=== PATIENT | female | born 1940 | race Caucasian/White ===

== ENCOUNTER → 2018-02-17 13:30 | Outpatient (CLI) | payer MEDICARE, OTHER, SELFPAY ==
--- NOTE | 2018-02-17 | DI.US.S_ITS ---
PROCEDURE: US ABDOMEN COMPLETE INDICATIONS: ABDOMINAL PAIN TECHNIQUE: Real-time scanning was performed of the abdominal and retroperitoneal organs, with image documentation. COMPARISON: None. FINDINGS: Liver: Liver is normal in size and homogeneous in echotexture. Gallbladder: The gallbladder wall measures 2.2 mm in thickness. No stones, sludge, pericholecystic fluid, or sonographic Domingo sign. Biliary ducts: Intrahepatic bile ducts are non-dilated. Extrahepatic bile duct caliber measures 6.1 mm. Normal is 6-7 mm or less in diameter, or 10 mm or less post-cholecystectomy. Pancreas: Visualized portions of the pancreas are sonographically normal. Spleen: Spleen is normal in size and homogeneous in echotexture. Kidneys: Kidneys are normal in size and echotexture. Right kidney measures 9.2 cm long; left kidney measures 9.7 cm long. No hydronephrosis or nephrolithiasis. No solid masses. There is a simple 1.6 cm right peripelvic cyst. Aorta: Visualized aorta is normal in caliber at less than 3 cm. Iliacs: Proximal common iliac arteries are normal in caliber at less than 2.5 cm. the distal aorta is not visualized. IVC: Iliac visualized. Miscellaneous: No free abdominal fluid. IMPRESSION: No cholelithiasis or findings to suggest choledocholithiasis or acute cholecystitis. Dictated by: Aide Durand M.D. on 02/17/2018 at 21:35 Approved by: Aide Durand M.D. on 02/17/2018 at 21:37
== END ==
PROVIDERS: Family Provider Family Medicine; PCP Family Medicine; Visit Provider Family Medicine
DX: R10.9 Unspecified abdominal pain (principal)
CPT/HCPCS: 76700

== ENCOUNTER → 2018-09-12 13:54 | Outpatient (CLI) | payer MEDICARE, OTHER, SELFPAY ==
--- NOTE | 2018-09-12 | DI.RAD.S_ITS ---
PROCEDURE: XR CHEST 2V INDICATIONS: COUGH TECHNIQUE: 2 views of the chest were acquired. COMPARISON: None. FINDINGS: Surgical changes and devices: None. Lungs and pleura: Lungs are clear. No pleural effusions or pneumothorax. Mediastinum: Mediastinal contours are normal. Heart size is normal. Bones and chest wall: No suspicious bony abnormalities. Soft tissues appear unremarkable. IMPRESSION: Normal for age, source of current cough symptoms is not seen. Dictated by: Ray Vincent M.D. on 09/12/2018 at 15:01 Approved by: Ray Vincent M.D. on 09/12/2018 at 15:01
== END ==
PROVIDERS: Family Provider Family Medicine; PCP Family Medicine; Visit Provider Family Medicine
DX: R05 Cough (principal)
CPT/HCPCS: 71046

== ENCOUNTER 2018-11-01 18:01 | Observation (INO) | payer MEDICARE, OTHER, SELFPAY ==
[2018-11-01] VITALS (9 sets, daily range): BP systolic 127–186; BP diastolic 40–84; PULSE 72–93; RESP 13–22; TEMP 36.3–37.3; O2SAT 96–99; BMI 32.6
--- NOTE | 2018-11-01 | DI.ECHO.S_ITS ---
[facility]---------+ [facility] +---------+ : : [address] : [place] : : : : [id number] : : : : Phone: [phone]+ Echocardiogram Report + + :Name: FREDDIE CALLEJAS Study Date: 11/02/2018 Height: 60 in : :[facility] Exam Location: [place] Weight: 161 lb : : Gender: Female BSA: 1.7 m2 : :: 1940 Age: 78 yrs BP: 164/65 mmHg: :Reason For Study: TIA : : Performed By: Ambrocio Bell : :Referring: DANIEL LAGUNAS : + + Interpretation Summary The ejection fraction is estimated to be 60-65%. There is no significant valvular heart disease. Procedure: A two-dimensional transthoracic echocardiogram with color flow and Doppler was performed. The study quality was technically good. There is no prior echocardiogram noted for this patient. The patient was in normal sinus rhythm during the exam. Left Ventricle: The left ventricle is normal in size. There is normal left ventricular wall thickness. The ejection fraction is estimated to be 60-65%. There are no focal wall motion abnormalities. Right Ventricle: The right ventricle is normal in size and function. Atria: Both atria are normal in size. The interatrial septum is intact with no evidence for an atrial septal defect. Mitral Valve: The mitral valve leaflets are mildly calcified. There is trace mitral regurgitation. Aortic Valve: The aortic valve is normal in structure and function. The aortic valve is trileaflet. The aortic valve opens well. No aortic regurgitation is present. Tricuspid Valve: The tricuspid valve is normal in structure and function. There is trace tricuspid regurgitation. The right ventricular systolic pressure is estimated to be at least 20 mmHg based on an estimated right atrial pressure of 3 mm Hg. Pulmonic Valve: The pulmonic valve is normal in structure and function. There is trace pulmonic regurgitation. Great Vessels: The aortic root is normal size. The dimensions of the ascending aorta are normal. The pulmonary artery is normal size. The IVC is of normal diameter and collapses greater than 50% with a sniff. This suggests a low right atrial pressure of 3 mm Hg. Pericardium/ Pleura There is no pericardial effusion. There is no pleural effusion. MMode/2D Measurements & Calculations LVIDd: 4.2 cm LVOT diam: 2.0 cm LVIDs: 2.2 cm Ao root diam: 2.5 cm FS: 47.5 % Aortic Jxn: 2.3 cm EPSS: 0.67 cm asc Aorta Diam: 2.7 cm IVSd: 0.85 cm Ao Arch Diam (Prox Trans): 2.3 cm LVPWd: 0.92 cm LV hallman. diameter/BSA (cm/m^2): 2.5 LV sys. diameter/BSA (cm/m^2): 1.3 LA dimension: 4.0 cm RA long axis: 3.7 cm LA A2 area: 12.8 cm2 RA area: 9.9 cm2 LA A4 area: 16.7 cm2 RA vol: 22.2 ml LA length (vol): 4.7 cm RA : 13.1 ml/m2 LA vol: 39.1 ml IVC diam: 1.1 cm LA vol index: 22.9 ml/m2 Doppler Measurements & Calculations Ao V2 max: 120.1 cm/sec LVOT Max Myles: 86.3 cm/sec Ao V2 mean: 82.0 cm/sec LV V1 max P.0 mmHg Ao max P.8 mmHg LV V1 VTI: 19.7 cm Ao mean P.0 mmHg RITO(I,D): 2.5 cm2 Ao V2 VTI: 24.6 cm RITO(V,D): 2.3 cm2 sev ratio: 0.80 RITO indexed to BSA (cm^2/m^2): 1.5 MV E max myles: 67.4 cm/sec TR max myles: 204.9 cm/sec MV A max myles: 87.6 cm/sec TR max P.8 mmHg MV E/A: 0.77 PA V2 max: 79.5 cm/sec Med Peak E' Myles: 3.6 cm/sec PA V2 mean: 56.8 cm/sec E/E' med: 18.6 PA mean P.4 mmHg Lat Peak E' Myles: 5.1 cm/sec PA pr(Accel): 26.6 mmHg E/E' lat: 13.3 PA Accel Time: 0.11 sec E/e' average: 16.0 MV dec time: 0.21 sec SV(LVOT): 62.3 ml Reading Physician:03:42 PM
--- NOTE | 2018-11-01 | DI.MRI.S_ITS ---
PROCEDURE: MR STROKE Pre- and post-contrast brain MRI, non-contrast brain MR angiogram, pre- and postcontrast neck MR angiogram INDICATIONS: TIA TECHNIQUE: Brain: Noncontrast axial T1 spin echo, axial T2 fast spin echo, sagittal and axial FLAIR, coronal T2 fast spin echo, axial gradient echo, axial diffusion and ADC through the brain. After the administration of contrast, axial 3D VIBE of the cranial vasculature and brain. Brain MRA: Non-contrast 3-D time of flight MR angiogram, with multiple brekdsq-xbanrekpg-rmezefjacd (MIP) reformats performed. Neck MRA: Axial and sagittal TruFISP through the neck. Coronal dynamic MR angiogram during administration of contrast in the arterial and venous phases, with 3-dimenstional obxabfs-mrgpdgclx-otroiwqkrx (MIP) reformats constructed from subtraction images. COMPARISON: [facility], CT, CT ANGIO HEAD AND NECK, 11/01/2018, 18:59. FINDINGS: Image quality: Excellent. BRAIN: CSF spaces: Ventricles are normal in size and shape. Basal cisterns are patent. No extra-axial fluid collections. Brain: No intracranial bleeds or mass effects. There is moderate diffuse cerebral volume loss. Minimal degree of patchy high FLAIR signal within the periventricular and subcortical white matter, consistent with small vessel ischemic disease. Hudson-white matter interface is normal. Diffusion weighted images show no acute ischemic insults. Brainstem appears normal. Normal intravascular flow voids are present. No abnormal intracranial enhancement. Skull and face: Calvarial marrow signal is normal. Orbits appear normal. Sinuses: Sinuses and mastoids are clear. BRAIN MR ANGIOGRAM: Anterior circulation: Intracranial internal carotid arteries are normal in size and enhancement. The flow within the paired anterior cerebral arteries is normal and symmetric. The flow within the middle cerebral arteries is normal and symmetric. The anterior communicating artery is seen. No stenoses, occlusions, or aneurysms. Posterior circulation: The visualized portions of the vertebral arteries demonstrate normal caliber, and join to form a normal appearing basilar artery. The flow within the posterior cerebral arteries is normal and symmetric. No stenoses, occlusions, or aneurysms. NECK MR ANGIOGRAM: Carotids: Great vessels demonstrate a conventional anatomy as they arise from the aortic arch. 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 Left common carotid artery origin demonstrates a high-grade focal stenosis. The calibers and courses of both common carotid arteries are normal. The bifurcation regions appear normal bilaterally. The internal carotid arteries demonstrate normal course and caliber. Posterior circulation: The origins of the vertebral arteries appear patent. More superior portions of both vertebral arteries demonstrate normal course and caliber, and join to form a normal appearing basilar artery. 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 Pre-contrast images through the neck show no soft tissue abnormalities. IMPRESSION: BRAIN MRI: 1. No acute process. No recent infarct. 2. Mild volume loss. Minimal small vessel ischemic disease. BRAIN MR ANGIOGRAM: 1. Negative cerebral MR angiography. NECK MR ANGIOGRAM: 1. No internal carotid artery stenosis nor vertebral artery stenosis bilaterally, as before. 2. 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 3. 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 Dictated by: Joi Leonardo M.D. on 11/02/2018 at 11:28 Approved by: Joi Leonardo M.D. on 11/02/2018 at 11:38
--- NOTE | 2018-11-01 18:12 | ED_ITS ---
HPI - General Adult General Chief complaint: Neuro Symptoms/Deficit Stated complaint: left hand/leg numbness/severe headache xtoday Time Seen by Provider: 11/01/18 18:07 Source: patient Mode of arrival: ambulatory Limitations: no limitations History of Present Illness HPI narrative: Patient is an 78-year-old female. Arrived by private vehicle with her . She reported that she woke up this morning at approximately 0900 hours with the worst headache of her life. She states that she went back to bed and woke up a couple hours later stating that her headache had much improved however was not completely resolved. From that time until she arrived here in the emergency department she had other symptoms to include tingling in her left hand. She also reported some coordination issues with her left hand. That seems to have resolved by the time she arrived here in the ER. Will brought her into the ER was that she got up to go to the bathroom and she thought that she was dragging her left foot. She asked her if it looked like she was dragging her foot and he thought that she was. Code stroke was called in triage. Related Data Home Medications Medication Instructions Recorded Confirmed ESOMEPRAZOLE SODIUM (NEXIUM) 20 mg PO QDAY@0600 #0 10/15/11 METFORMIN HCL (RIOMET) 1,000 mg PO BID #0 10/15/11 11/01/18 simvastatin 40 mg PO BEDTIME #0 10/15/11 11/01/18 amlodipine 5 mg PO DAILY 11/01/18 11/01/18 Allergies Allergy/AdvReac Type Severity Reaction Status Date / Time Sulfa (Sulfonamide Allergy Mild RASH Verified 11/01/18 18:38 Antibiotics) Review of Systems Constitutional Denies fever(s), Denies frequent falls, Reports headache(s) and Reports weakness (Left hand) Eyes Denies change in vision and Denies diplopia ENT Ears, Nose, Mouth, and Throat: Denies vertigo, Denies dizziness, Reports headache(s), Denies nasal congestion, Denies nasal obstruction, Denies disequilibrium and Denies sore throat Cardiovascular Denies chest pain, Denies palpitations, Denies dyspnea and Denies dyspnea on exertion Respiratory Denies cough, Denies dyspnea and Denies dyspnea on exertion Gastrointestinal Gastrointestinal: Denies abdominal pain, Denies nausea and Denies vomiting Genitourinary Denies dysuria Musculoskeletal Reports abnormal gait (Dragging her left foot) Comments: Tingling to her left hand with coordination issues with her left hand. Sensation and tracking her left foot Integumentary/Breasts Denies rash Neurologic Reports abnormal gait (Dragging her left foot), Reports behavioral changes, Denies confusion, Denies vertigo, Denies dizziness, Denies frequent falls, Reports headache(s), Reports lack of coordination (Left hand), Denies disequilib rium and Reports weakness (Left hand) Psychiatric Denies anxiety, Reports behavioral changes and Denies confusion Endocrine Denies palpitations Hematologic/Lymphatic Denies easy bleeding and Denies easy bruising Allergic/Immunologic Denies urticaria [facility] Medical History Diabetes type 2, controlled (Acute) Gastroesophageal reflux (Acute) History of fracture of left ankle (Acute) History of pelvic fracture (Acute) Hyperlipidemia (Acute) Hypertension (Acute) Irritable bladder (Acute) Surgical History History of D&C (Acute) History of bladder suspension procedure (Acute) History of breast biopsy (Acute) History of hysterectomy (Acute) History of pelvic surgery (Acute) Family History (Updated 11/01/18 @ 23:08 by YG Luciano) Father Hypertension Mother Cancer Brother Stroke Brother Heart attack Brother Heart attack Sister Cancer Social History household members: spouse Smoking Status: Former smoker alcohol intake: never Family History (Updated 11/01/18 @ 23:08 by YG Luciano) Father Hypertension Mother Cancer Brother Stroke Brother Heart attack Brother Heart attack Sister Cancer Social History household members: spouse Smoking Status: Former smoker alcohol intake: never Exam Initial Vital Signs Initial Vital Signs: Vital Signs Pulse Rate 93 H 11/01/18 18:06 Respiratory Rate 22 11/01/18 18:06 Blood Pressure 186/84 H 11/01/18 18:06 Pulse Oximetry 99 11/01/18 18:06 Const General: cooperative, well developed, well groomed and No acute distress Orientation: alert, awake and oriented x3 HENMT Head: normal to inspection and normocephalic Nose: external nose normal Face and sinus: normal facial exam Mouth: oral mucosae normal Eyes Pupils: PERRL EOM: EOM intact bilaterally Resp Effort & Inspection: normal respiratory effort Auscultation: clear to auscultation bilaterally Cardio Rate: regular rate Rhythm: regular rhythm Pulses: radial pulses present GI Inspection: non-distended Palpation: soft, No firm and No tender Skin Lesions: no lesions Rashes: no rashes Neuro General: alert and oriented x3 Cranial Nerves: CN's II-XI intact bilaterally Cognition: normal cognition Speech: speech normal Motor: muscle tone normal throughout Sensory Exam: no sensory deficits noted Coordination: [id number] test normal Extrem General: normal to inspection, capillary refill normal and No edema Psych Appearance: grossly normal and well kempt Scores GCS Jose coma scale eye opening: Spontaneous Jose coma scale verbal response: Orientated [place] coma scale motor response: Obey commands Jose coma scale total score: 15 NIH Stroke Scale Level of Conciousness: Alert, keenly responsive Ask month/age: Answers both questions correctly. Open/close eyes, close hand: Performs both tasks correctly Best gaze horizontal: Normal Visual anderson: No visual loss Facial palsy: Normal symetrical movement Left arm drift: No drift for full 10 sec Right arm drift: No drift for full 10 sec Left leg drift: No drift for full 10 sec Right leg drift: No drift for full 10 sec Limb ataxia: Absent Sensory on face/arms/legs: Normal, no sensory loss Best language: No aphasia, normal Dysarthria: Normal Extinction or inattention: No abnormality Total NIH Stroke scale score: 0 Course Orders Ordered: ED Orders 11/01/18 18:12 CT head/brain wo con Stat EKG-12 Lead Stat 11/01/18 18:18 Complete Blood Count AUTO DIFF Stat Comprehensive Metabolic Panel Stat Ethanol (ETOH) Stat Partial Thromboplastin Time Stat Prothrombin Time INR Stat 11/01/18 18:33 CT angio head and neck Stat 11/01/18 22:13 Consult to Occupational Therapy Evaluate & Treat Consult to Physical Therapy Evaluate & Treat 11/01/18 22:14 Consult to Discharge Planning Routine 11/01/18 22:16 Consult to Speech Therapy Evaluate & Treat 11/02/18 Basic Metabolic Panel Routine Magnesium Routine Acetaminophen (Tylenol) 650 mg PO Q6HR PRN PRN Reason: As Needed for Fever/Mild Pain Amlodipine Besylate (Norvasc) 5 mg PO DAILY [facility] Aspirin (Aspirin Ec) 81 mg PO DAILY [facility] Atorvastatin Calcium (Lipitor) 40 mg PO BEDTIME [facility] Last Admin: 11/01/18 23:44 Dose: 40 mg Dextrose (D50w) 25 gm IV PRN PRN; Protocol PRN Reason: Hypoglycemia Enoxaparin Sodium (Lovenox) 40 mg SUBCUT DAILY [facility] Ibuprofen (Advil) 600 mg PO Q6HR PRN PRN Reason: As Needed for Fever/Mild Pain Insulin Aspart (Novolog Flexpen) 0 unit SUBCUT ACHS [facility]; Protocol Last Admin: 11/01/18 22:41 Dose: Not Given Ondansetron HCl (Zofran) 4 mg IV Q8HR PRN PRN Reason: Nausea And Vomiting Pantoprazole Sodium (Protonix) 20 mg PO 0600 [facility] Sodium Chloride (Normal Saline 0.9% Flush) 10 ml IV BID [facility] Sodium Chloride (Normal Saline 0.9% Flush) 10 ml IV PRN PRN PRN Reason: Flush Discontinued Medications Atorvastatin Calcium (Lipitor) 20 mg PO BEDTIME [facility] Last Admin: 11/01/18 23:37 Dose: Not Given Sodium Chloride (Normal Saline 0.9%) 1,000 mls @ 1,000 mls/hr IV BOLUS ONE Stop: 11/01/18 19:32 Last Infusion: 11/01/18 21:59 Dose: 0 mls/hr Infusion: 11/01/18 19:11 Dose: 0 mls/hr Admin: 11/01/18 18:40 Dose: 1,000 mls/hr Sodium Chloride (Normal Saline 0.9%) 1,000 mls @ 100 mls/hr IV CONT [facility] Last Admin: 11/01/18 23:35 Dose: Not Given Vital Signs - 8 hr 11/01/18 18:06 11/01/18 18:45 11/01/18 19:00 Temperature Pulse Rate 93 H 84 92 H Respiratory Rate 22 15 16 Blood Pressure 186/84 H Blood Pressure [Right Arm] 162/52 H 160/62 H Pulse Oximetry 99 98 99 11/01/18 19:37 11/01/18 20:49 11/01/18 21:30 Temperature Pulse Rate 72 72 73 Respiratory Rate 16 18 13 Blood Pressure Blood Pressure [Right Arm] 130/40 L 127/67 157/58 H Pulse Oximetry 97 97 97 11/01/18 22:00 11/01/18 22:15 11/01/18 23:20 Temperature 97.3 F L 99.2 F Pulse Rate 89 79 79 Respiratory Rate 17 20 18 Blood Pressure 151/53 H 142/58 H Blood Pressure [Right Arm] 181/64 H Pulse Oximetry 96 98 96 Medical Decision Making Lab Data Lab results reviewed: Yes I reviewed the patient's lab results. Result diagrams: 11/01/18 18:18 11/01/18 18:18 Lab Results 11/01/18 11/01/18 11/01/18 Range/Units 18:18 18:18 18:18 WBC 6.4 (4.5-11.0) X10^3/uL RBC 4.45 (4.0-5.2) X10^6/uL Hgb 13.4 (12.0-16.0) g/dL Hct 38.8 (36-46) % MCV 87.1 (80-100) fL MCH 30.2 (26-34) PG MCHC 34.6 (30-36) % RDW 13.4 (11.6-14.8) % Plt Count 299 (150-400) X10^3/uL Neut % (Auto) 41.3 L (50-75) % Lymph % (Auto) 49.5 H (25-40) % [place] % (Auto) 7.0 (3-14) % Eos % (Auto) 1.6 L (2-4) % Baso % (Auto) 0.6 (0-2) % Neut # (Auto) 2600 (2868-2925) /uL Lymph # (Auto) 3200 (2619-0126) /uL [place] # (Auto) 400 (0-900) /uL Eos # (Auto) 100 (0-450) /uL Baso # (Auto) 0 (0-100) /uL PT 10.5 (10.1-12.7) SECONDS INR 0.9 (0.9-1.3) APTT 33 (26.4-36.2) SECONDS Sodium 130 L (137-145) mmol/L Potassium 4.4 (3.4-5.1) mmol/L Chloride 93 L (98-107) mmol/L Carbon Dioxide 27 (22-32) mmol/L BUN 16 (7-17) mg/dL Creatinine 0.90 (0.52-1.04) mg/dL Estimated GFR > 60.0 (>60) mL/min BUN/Creatinine Ratio 17.8 (6-22) Glucose 92 (80-110) mg/dL Calcium 10.1 (8.4-10.2) mg/dL Total Bilirubin 0.7 (0.2-1.3) mg/dL AST 24 (14-36) IU/L ALT 26 (9-52) IU/L Alkaline Phosphatase 71 (38-126) U/L Total Protein 7.3 (6.3-8.2) g/dL Albumin 4.6 (3.5-5.0) g/dL Globulin 2.7 (1.7-4.1) g/dL Albumin/Globulin Ratio 1.7 (1.0-2.8) Ethyl Alcohol < 10 mg/dL Point of Care Testing Glucose POC 104 Point of care testing: Point of Care Testing Glucose POC [address] scan - head: Radiologist's impression: [address] [address] [address] Scan Report Signed Patient: Gerda Pak LMR#: [id number] : 8Acct:[id number] Age/Sex: 78 / FDate of Service: 11/01/18 Loc: ED Accession Number: [id number] Procedure: CT head/brain wo con Ordering Provider: Torin Patel D.O. PROCEDURE: CT HEAD/BRAIN WO CON INDICATIONS: possible stroke TECHNIQUE: Noncontrast 4.5 mm thick angled axial sections acquired from the foramen magnum to the vertex, with coronal and sagittal reformats. For radiation dose reduction, the following was used: automated exposure control, adjustment of mA and/or kV according to patient size. COMPARISON: [facility], CT, HEAD WITHOUT CONTRAST, 02/26/2014, 12:34. FINDINGS: Image quality: Excellent. CSF spaces: Basal cisterns are patent. No extra-axial fluid collections. The ventricles are symmetric in size and shape. Brain: No intracranial bleeds or masses. There is cerebral volume loss for age, with resultant ventricular and sulcal prominence. There are periventricular and deep white matter chronic small vessel ischemic changes. There is intracranial internal carotid artery atherosclerosis. Skull and face: Calvarium and visualized facial bones appear intact, without suspicious lesions. Sinuses: Visualized sinuses and mastoids are clear. IMPRESSION: No acute intracranial hemorrhage can be seen. No CT findings of early infarction are seen. If there is strong clinical suspicion for an acute stroke, please consider an MRI for further evaluation, as it is more sensitive (assuming that there is no contraindication to MRI). Dictated by: Placido Oliver M.D. on 11/01/2018 at 17:21 Approved by: Placido Oliver M.D. on 11/01/2018 at 17:21 CTA head and neck: Radiologist's impression: [address] [address] [address] Scan Report Signed Patient: Gerda Pak LMR#: [id number] : 8Acct:[id number] Age/Sex: 78 / FDate of Service: 11/01/18 Loc: ED Accession Number: [id number] Procedure: CT angio head and neck Ordering Provider: Torin Patel D.O. PROCEDURE: CT ANGIO HEAD AND NECK INDICATIONS: headache possible stroke TECHNIQUE: Pre-contrast 4.5 mm thick sections acquired from the foramen magnum to the vertex. After the administration of intravenous contrast, 1 mm thick sections acquired from the aortic arch through the [place] of [place]. Post-contrast 4.5 mm thick sections then re- acquired from the foramen magnum to the vertex. 3-dimensional maximum-intensity- projection (MIP) and/or volume rendering reformats were acquired of the central intracranial vasculature and neck separately. COMPARISON: [facility], CT, CT HEAD/BRAIN WO CON, 11/01/2018, 18:09. [facility], CT, HEAD WITHOUT CONTRAST, 02/26/2014, 12:34. FINDINGS: Image quality: Excellent. BRAIN: CSF spaces: Ventricles are normal in size and shape. Basal cisterns are patent. No extra-axial fluid collections. Brain: No midline shift. No intracranial bleeds or masses. [place]-white matter interface appears intact. There are moderate periventricular and subcortical white matter hypoattenuation suggestive of chronic intravascular ischemic changes. There is calcified plaque of the intracranial vasculature. Skull and face: Calvarium and facial bones appear intact, without suspicious lesions. Orbits appear normal. Sinuses: Sinuses and mastoids are clear. HEAD CT ANGIOGRAPHY: Anterior circulation: Intracranial internal carotid arteries are normal in size and flow. The flow within the paired anterior cerebral arteries is normal and symmetric. The flow within the middle cerebral arteries is normal and symmetric. The anterior communicating artery is not well seen. No aneurysms are seen. Posterior circulation: Visualized portions of the vertebral arteries demonstrate normal caliber, and join to form a normal appearing basilar artery. Flow within the posterior cerebral arteries is normal and symmetric. No aneurysms are seen. NECK CT ANGIOGRAPHY: Carotid system: The great vessels demonstrate a conventional anatomy as they arise from the aortic arch. The origins of the common carotid arteries appear patent. There is calcified and noncalcified plaque of the origins of the common carotid arteries. The common carotid arteries demonstrate normal caliber and courses. There is moderate calcified and noncalcified plaque of the carotid bifurcations bilaterally. The internal carotid arteries demonstrate normal calibers and courses. Posterior circulation: The origins of the vertebral arteries both appear widely patent. The more superior extracranial portions of both vertebral arteries also d emonstrate normal courses and calibers. The basilar artery appears patent. Soft tissues: Visualized neck soft tissues demonstrate no suspicious abnormalities. Bones: Moderate multilevel degenerative changes of the cervical spine noted. There is straightening of the normal cervical lordosis. IMPRESSION: 1. No acute intracranial abnormality. 2. No significant occlusion, stenosis, dissection, or aneurysm of the cervical courses of the internal carotid arteries and vertebral arteries bilaterally. 3. No significant occlusion, stenosis, dissection, or aneurysm of the intracranial vasculature identified. Any quantitative measurements of stenosis were performed using NASCET criteria. Dictated by: John Montanez M.D. on 11/01/2018 at 20:46 Approved by: John Montanez M.D. on 11/01/2018 at 20:58 ECG Data Attestation: I personally reviewed and interpreted this ECG as follows: Prior ECG tracings: not available for review Interpretation: Sinus rhythm Ventricular rate 82 Left axis deviation LVH Normal QRS Normal QTC Nonspecific ST T wave changes MDM Narrative Medical decision making narrative: Patient had no objective findings on her exam here in the ER. It does appear that most of her symptoms have either greatly improved or resolved. She is not a candidate for tPA. CTA shows no large vessel occlusions. Discussed the case with Neurology at [facility] who agreed that patient is not a candidate for any retrieval procedures. Patient was not hypertensive. Considered subarachnoid hemorrhage given her headache earlier today however this CTA of the head and neck was unremarkable. Patient still needs MRI. Discussed the case with BERNADETTE Bell the night hospitalist who will admit for further evaluation and treatment. Discussed the admission with the patient her is at bedside. They expressed understanding and agreement. Critical Care Time Critical Care Time: Yes Total Critical Care Time: 35 Attestation: The high probability of a clinically significant, sudden or life threatening deterioration of the neurologic system(s) required my full and direct attention, intervention and personal management. The aggregate critical care time was 35 minutes. This time is in addition to time spent performing reported procedures but includes the following: [] Data Review and interpretation [] Patient assessment and monitoring of vital signs [] Documentation [] Medication orders and management Discharge Plan Departure Patient Disposition: Admitted as Observation Clinical Impression: Transient cerebral ischemia Qualifiers: Transient cerebral ischemia type: unspecified Qualified Code(s): G45.9 - Transient cerebral ischemic attack, unspecified Headache Qualifiers: Headache type: unspecified Headache chronicity pattern: acute headache Intractability: not intractable Qualified Code(s): R51 - Headache Discharge Date/Time: 11/01/18 22:10 Interventions: ED Discharge Assessment Last Done: 11/01/18 22:10 Admit Date/Time: 11/01/18 21:36 Admit Provider: Carlos Enrique Bell
[2018-11-01 18:28] LABS: Add Manual Diff / Slide Review NO; Basophils Absolute Auto 0 /uL (0-100); Basophils Percent Auto 0.6 % (0-2); Eosinophils Absolute Auto 100 /uL (0-450); Eosinophils Percent Auto 1.6 % (2-4); Hematocrit 38.8 % (36-46); Hemoglobin 13.4 g/dL (12.0-16.0); Lymphocytes Absolute Auto 3200 /uL (1100-4500); Lymphocytes Percent Auto 49.5 % (25-40); Mean Corpuscular HGB Conc 34.6 % (30-36); Mean Corpuscular Hemoglobin 30.2 PG (26-34); Mean Corpuscular Volume 87.1 fL (80-100); Monocytes Absolute Auto 400 /uL (0-900); Neutrophils Absolute Auto 2600 /uL (1500-7000); Neutrophils Percent Auto 41.3 % (50-75); Platelet Count 299 X10^3/uL (150-400); Red Blood Cell Count 4.45 X10^6/uL (4.0-5.2); Red Cell Distribution Width 13.4 % (11.6-14.8); White Blood Cell Count 6.4 X10^3/uL (4.5-11.0)
--- NOTE | 2018-11-01 18:33 | DI.CT.S_ITS ---
PROCEDURE: CT ANGIO HEAD AND NECK INDICATIONS: headache possible stroke TECHNIQUE: Pre-contrast 4.5 mm thick sections acquired from the foramen magnum to the vertex. After the administration of intravenous contrast, 1 mm thick sections acquired from the aortic arch through the [place] of [place]. Post-contrast 4.5 mm thick sections then re-acquired from the foramen magnum to the vertex. 3-dimensional qiuqfek-etsdoawda-rybnxtxqwo (MIP) and/or volume rendering reformats were acquired of the central intracranial vasculature and neck separately. COMPARISON: [facility], CT, CT HEAD/BRAIN WO CON, 11/01/2018, 18:09. [facility], CT, HEAD WITHOUT CONTRAST, 02/26/2014, 12:34. FINDINGS: Image quality: Excellent. BRAIN: CSF spaces: Ventricles are normal in size and shape. Basal cisterns are patent. No extra-axial fluid collections. Brain: No midline shift. No intracranial bleeds or masses. [place]-white matter interface appears intact. There are moderate periventricular and subcortical white matter hypoattenuation suggestive of chronic intravascular ischemic changes. There is calcified plaque of the intracranial vasculature. Skull and face: Calvarium and facial bones appear intact, without suspicious lesions. Orbits appear normal. Sinuses: Sinuses and mastoids are clear. HEAD CT ANGIOGRAPHY: Anterior circulation: Intracranial internal carotid arteries are normal in size and flow. The flow within the paired anterior cerebral arteries is normal and symmetric. The flow within the middle cerebral arteries is normal and symmetric. The anterior communicating artery is not well seen. No aneurysms are seen. Posterior circulation: Visualized portions of the vertebral arteries demonstrate normal caliber, and join to form a normal appearing basilar artery. Flow within the posterior cerebral arteries is normal and symmetric. No aneurysms are seen. NECK CT ANGIOGRAPHY: Carotid system: The great vessels demonstrate a conventional anatomy as they arise from the aortic arch. The origins of the common carotid arteries appear patent. There is calcified and noncalcified plaque of the origins of the common carotid arteries. The common carotid arteries demonstrate normal caliber and courses. There is moderate calcified and noncalcified plaque of the carotid bifurcations bilaterally. The internal carotid arteries demonstrate normal calibers and courses. Posterior circulation: The origins of the vertebral arteries both appear widely patent. The more superior extracranial portions of both vertebral arteries also demonstrate normal courses and calibers. The basilar artery appears patent. Soft tissues: Visualized neck soft tissues demonstrate no suspicious abnormalities. Bones: Moderate multilevel degenerative changes of the cervical spine noted. There is straightening of the normal cervical lordosis. IMPRESSION: 1. No acute intracranial abnormality. 2. No significant occlusion, stenosis, dissection, or aneurysm of the cervical courses of the internal carotid arteries and vertebral arteries bilaterally. 3. No significant occlusion, stenosis, dissection, or aneurysm of the intracranial vasculature identified. Any quantitative measurements of stenosis were performed using NASCET criteria. Dictated by: John Montanez M.D. on 11/01/2018 at 20:46 Approved by: John Montanez M.D. on 11/01/2018 at 20:58
[2018-11-01 18:35] LABS: INR 0.9 (0.9-1.3); Prothrombin Time 10.5 SECONDS (10.1-12.7)
[2018-11-01 18:37] LABS: PTT Partial Thromboplastin Tim 33 SECONDS (26.4-36.2)
[2018-11-01] MEDS: SODIUM CHLORIDE 0.9% 1,000 ML 1000 ML IV (18:40)
[2018-11-01 18:45] LABS: Alanine Aminotransferase 26 IU/L (9-52); Albumin 4.6 g/dL (3.5-5.0); Albumin Globulin Ratio 1.7 (1.0-2.8); Alkaline Phosphatase 71 U/L (38-126); Aspartate Aminotransferase 24 IU/L (14-36); BUN Creatinine Ratio 17.8 (6-22); Bilirubin Total 0.7 mg/dL (0.2-1.3); Blood Urea Nitrogen 16 mg/dL (7-17); Calcium 10.1 mg/dL (8.4-10.2); Carbon Dioxide 27 mmol/L (22-32); Chloride 93 mmol/L (98-107); Estimated Glomerular Filt Rate > 60.0 mL/min (>60); Ethanol (ETOH) < 10 mg/dL; Globulin 2.7 g/dL (1.7-4.1); Glucose 92 mg/dL (80-110); HEMOLYSIS < 15 (0-50); Potassium 4.4 mmol/L (3.4-5.1); Sodium 130 mmol/L (137-145); Total Protein 7.3 g/dL (6.3-8.2)
--- NOTE | 2018-11-01 22:34 | PM.HP.1 ---
History of Present Illness Chief complaint: left hand/leg numbness/severe headache xtoday Narrative: Gerda Pak is an 78-year-old female patient with history significant for non insulin-dependent type 2 diabetes, hypertension and hyperlipidemia who presents to the ER with complaints of left-sided weakness. The patient provides a history that he had wok at 4 a.m. with the worst headache ever. She described the headache as at the crown of her head without radiation, visual changes, neck pain or nausea. She states at that time she took Advil and returned to bed waking in the morning feeling her headache was better but not resolved and feeling ?like my head is filled with cotton wool. She further describes an episode of left hand ?locking up? that after several minutes she is able to relax her fingers regaining baseline dexterity. She reports left leg weakness stating she feels like she is dragging her left leg. The patient reports no antecedent complaints of recent illness fever or chills, nasal congestion or sore throat. She reports experiencing no visual changes or difficulty swallowing. Denies neck pain or back pain and has no chest pain or palpitations, shortness of breath, cough or wheezing. She denies complaints of abdominal pain and has had no nausea or vomiting and denies complaints of constipation or diarrhea. She does have a history of GERD and has been taking esomeprazole chronically with no symptoms. She does endorse a history of frequent urination and a ?weak bladder?. She has no prior history of ataxia or falls. In the ER the patient presented with an elevated blood pressure of 186/64. Heart rate 93, respirations of 22 saturating 99% on room air upon arrival to the floor a temperature was taken and and the patient found to be afebrile at 97.3 with blood pressure of 151/53. The patient is evaluated as a code stroke in the ER with a CT obtained finding no acute intracranial process. CTA found no significant vascular lesions or occlusion, stenosis, and vertebral or intracranial vasculature. Laboratory studies completed in the ER found CBC within normal range as well as coagulation studies. On chemistry sodium is noted to be low at 130 with normal potassium of 4.4 and preserve renal function with a BUN of 16 and creatinine 0.9 and blood sugar of 92. Patient is admitted to the hospital for TIA necessitating ongoing evaluation and monitoring. Patient History Medical History (Updated 11/01/18 @ 22:47 by YG Luciano) Diabetes type 2, controlled (Acute) Gastroesophageal reflux (Acute) History of fracture of left ankle (Acute) History of pelvic fracture (Acute) Hyperlipidemia (Acute) Hypertension (Acute) Irritable bladder (Acute) Surgical History (Updated 11/01/18 @ 22:47 by YG Luciano) History of D&C (Acute) History of bladder suspension procedure (Acute) History of breast biopsy (Acute) History of hysterectomy (Acute) History of pelvic surgery (Acute) Family History (Updated 11/01/18 @ 23:08 by YG Luciano) Father Hypertension Mother Cancer Brother Stroke Brother Heart attack Brother Heart attack Sister Cancer Social History household members: spouse Smoking Status: Former smoker alcohol intake: never Family & Social History Family History (Updated 11/01/18 @ 23:08 by YG Luciano) Father Hypertension Mother Cancer Brother Stroke Brother Heart attack Brother Heart attack Sister Cancer Social History: household members spouse Prior Living Arrangements House Safety & Behavioral: Feels Safe in Current Yes Environment Been Physically Hurt or No Threatened By a Person Suicidal Ideation Description None Suicide Plan Description No Plan Tobacco & Substance use: Smoking Status Former smoker alcohol intake never Substance Use Type does not use Comment: Patient presently is residing in a single family home that is a trilevel with her to whom she has been for 49 years. Her father and mother have her father had hypertension and mother lung cancer. She has 3 brothers 1 of whom had a severe stroke another with an PA and the other with cardiovascular disease receiving stents. She has 1 sister who had breast cancer. Smoking: Past smoker, started age 14 smoking 2 packs per day until age 40. The patient quit smoking in 1978. Alcohol: Patient denies alcohol use. Substance use: The patient denies recreation pharmaceuticals herbal or cannabis products. Advanced directive: The patient is to be a FULL CODE. She designates her to be surrogate decision maker. Meds Home Medications Medication Instructions Recorded Confirmed Type ESOMEPRAZOLE SODIUM (NEXIUM) 20 mg PO QDAY@0600 #0 10/15/11 History METFORMIN HCL (RIOMET) 1,000 mg PO BID #0 10/15/11 11/01/18 History simvastatin 40 mg PO BEDTIME #0 10/15/11 11/01/18 History amlodipine 5 mg PO DAILY 11/01/18 11/01/18 History Allergies Allergy/AdvReac Type Severity Reaction Status Date / Time Sulfa (Sulfonamide Allergy Mild RASH Verified 11/01/18 18:38 Antibiotics) Review of Systems Review of Systems All systems reviewed & are unremarkable except as noted in HPI and below Exam Vital Signs (past 8 hours): - 11/01/18 18:06 11/01/18 18:45 11/01/18 19:00 Pulse Rate 93 H 84 92 H Respiratory Rate 22 15 16 Blood Pressure 186/84 H Blood Pressure [Right Arm] 162/52 H 160/62 H Pulse Oximetry 99 98 99 11/01/18 19:37 11/01/18 20:49 11/01/18 21:30 Pulse Rate 72 72 73 Respiratory Rate 16 18 13 Blood Pressure Blood Pressure [Right Arm] 130/40 L 127/67 157/58 H Pulse Oximetry 97 97 97 11/01/18 22:00 Pulse Rate 89 Respiratory Rate 17 Blood Pressure Blood Pressure [Right Arm] 181/64 H Pulse Oximetry 96 Oxygen Delivery Method Room Air Narrative Exam Narrative: GENERAL APPEARANCE: well developed, OPC male with a BMI of 31.6, in no acute distress. HEAD: Symmetrical facies, no scalp lesions. EYES: pupils equal, round, reactive to light and accommodation, sclera non-icteric, extraocular movement intact without nystagmus. EARS: normal external structures, no ear pain NOSE: sinuses non tender to percussion, no rhinorrhea ORAL CAVITY: mucosa moist without lesions or exudate, palate normal, tongue in midline. THROAT: normal, no erythema, no exudate, pharynx normal, uvula midline. NECK/THYROID: neck supple, no jugular venous distention, no carotid bruit, no thyromegaly, trachea midline. LYMPH NODES: no cervical or supraclavicular lymphadenopathy. SKIN: warm and dry, no suspicious lesions, no rashes, good turgor. HEART: regular rate and rhythm, S1-S2 without murmur, no rubs or gallops, brisk capillary refill, no edema LUNGS: clear to auscultation bilaterally, no coarseness crackles or wheezing, no cough present CHEST: Symmetrical movement, no accessory muscle use. ABDOMEN: Soft, no distention, no epigastric or abdominal tenderness on palpation, no guarding or peritoneal signs, no organomegaly, active bowel tones. BACK: Normal curvature, nontender to palpation EXTREMITIES: moves all extremities, strength is 5/5 bilaterally and symmetrical, well perfused. 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 PSYCH: alert, cognitive function intact, good eye contact, stable mood with congruent affect Objective Labs Result Diagrams: 11/01/18 18:18 11/01/18 18:18 Labs: Laboratory Results - last 24 hr 11/01/18 11/01/18 11/01/18 18:18 18:18 18:18 WBC 6.4 RBC 4.45 Hgb 13.4 Hct 38.8 MCV 87.1 MCH 30.2 MCHC 34.6 RDW 13.4 Plt Count 299 Neut % (Auto) 41.3 L Lymph % (Auto) 49.5 H Callaway % (Auto) 7.0 Eos % (Auto) 1.6 L Baso % (Auto) 0.6 Neut # (Auto) 2600 Lymph # (Auto) 3200 [place] # (Auto) 400 Eos # (Auto) 100 Baso # (Auto) 0 PT 10.5 INR 0.9 APTT 33 Sodium 130 L Potassium 4.4 Chloride 93 L Carbon Dioxide 27 BUN 16 Creatinine 0.90 Estimated GFR > 60.0 BUN/Creatinine Ratio 17.8 Glucose 92 Calcium 10.1 Total Bilirubin 0.7 AST 24 ALT 26 Alkaline Phosphatase 71 Total Protein 7.3 Albumin 4.6 Globulin 2.7 Albumin/Globulin Ratio 1.7 Ethyl Alcohol < 10 Assessment & Plan Assessment & Plan narrative: The patient is admitted to the hospital related to transient left hand cramping and left leg weakness. 1. Transitory ischemic attack, symptoms resolved upon arrival. -patient with reported left hand cramping and spasms that resolved as well as left leg weaknes, both symptoms had resolved prior to arrival in the ER. -patient continues to complain of persistent headache at the top for head without associated symptoms of nausea visual changes fevers or chills. -patient does present with unequal strength in the lower extremities with the right greater than left. Patient has a history of pelvic fracture and ankle fracture that she believes affects her strength. -neuro exam is intact with an NIH score of 0, ABCD2 score of 6. -CT and CTA find no significant lesions, will obtain MR stroke. -patient without complaints of chest pain or palpitations, will obtain echocardiogram. -simvastatin will be changed to atorvastatin 40 mg daily. -add aspirin 81 mg daily. -PT and OT to consult, evaluate and treat, speech therapy to evaluate and treat. 2. Chronic Hypertension, present on admission. -the patient presents with a blood pressure of 186/64 improving to 127/67 in the ER. -will continue patient's home medication amlodipine 5 mg daily. 3. Chronic Diabetes type 2, non insulin dependent, controlled. -patient takes metformin 1000 mg twice daily, she reports hemoglobin A1c last week of 5.9. -no complaints of retinopathy, no nephropathy with BUN of 16 and creatinine is 0.9, occasional episodes of numbness and tingling bilateral feet not present on exam. -fingerstick blood sugars AC and HS -correctional insulin low range. 4. Chronic Hyperlipidemia, active -patient takes simvastatin 40 mg daily will be transition to atorvastatin 40 mg daily. -will obtain lipid panel 5. Chronic GERD, stable -patient is taking as esomeprazole daily with no symptoms. -will order Protonix 20 mg daily. The patient is admitted to the hospital due to his severity of symptoms and risk for potential complications or adverse events. The patient is admitted as an observation patient with expected length of stay to be less than 2 midnights. Time Spent With Patient Time with patient: 25 - 35 minutes Scores ABCD2 Age >= 60 years: yes Initial BP. Either SBP >= 140 or DBP >= 90.: yes Clinical features of the TIA: unilateral weakness Duration of symptoms: 10-59 minutes History of diabetes: yes ABCD2 Score: 6 NIHSS Level of Conciousness: Alert, keenly responsive Ask month/age: Answers both questions correctly. Open/close eyes, close hand: Performs both tasks correctly Best gaze horizontal: Normal Visual anderson: No visual loss Facial palsy: Normal symetrical movement Left arm drift: No drift for full 10 sec Right arm drift: No drift for full 10 sec Left leg drift: No drift for full 10 sec Right leg drift: No drift for full 10 sec Limb ataxia: Absent Sensory on face/arms/legs: Normal, no sensory loss Best language: No aphasia, normal Dysarthria: Normal Extinction or inattention: No abnormality Total NIH Stroke scale score: 0
--- NOTE | 2018-11-01 22:41 | PC.ADMIT ---
[email or web address] [facility] Admission Note: The patient,Gerda Pak,78 y/o, was given written information regarding hospital policies, unit procedures and contact persons. Patient's smoking status: Former smoker. Vital Signs - 8 hr 11/01/18 18:06 11/01/18 18:45 11/01/18 19:00 Pulse Rate 93 H 84 92 H Respiratory Rate 22 15 16 Blood Pressure 186/84 H Blood Pressure [Right Arm] 162/52 H 160/62 H Pulse Oximetry 99 98 99 11/01/18 19:37 11/01/18 20:49 11/01/18 21:30 Pulse Rate 72 72 73 Respiratory Rate 16 18 13 Blood Pressure Blood Pressure [Right Arm] 130/40 L 127/67 157/58 H Pulse Oximetry 97 97 97 11/01/18 22:00 Pulse Rate 89 Respiratory Rate 17 Blood Pressure Blood Pressure [Right Arm] 181/64 H Pulse Oximetry 96 Patient up from ED via stretcher. Pt was able to get off of the stretcher and ambulate to the bathroom. Gait was steady. Pt A&O, calm and cooperative. Denies sx that she arrived to the ED with.
[2018-11-01] MEDS: ATORVASTATIN 20 MG TABLET 40 MG PO (23:44)
[2018-11-02 04:10] VITALS: BP 148/71; PULSE 71; RESP 18; TEMP 36.2; O2SAT 98
[2018-11-02 05:37] LABS: Cholesterol 186 mg/dL (140-199); HDL Cholesterol 70 mg/dL (40-60); LDL Cholesterol Calculated 84 mg/dL (<100); Triglycerides 160 mg/dL (35-150)
[2018-11-02 05:45] LABS: Magnesium 1.9 mg/dL (1.6-2.3)
[2018-11-02 05:54] LABS: BUN Creatinine Ratio 13.8 (6-22); Blood Urea Nitrogen 11 mg/dL (7-17); Carbon Dioxide 28 mmol/L (22-32); Chloride 101 mmol/L (98-107); Estimated Glomerular Filt Rate > 60.0 mL/min (>60); Glucose 107 mg/dL (80-110); HEMOLYSIS < 15 (0-50); Potassium 4.1 mmol/L (3.4-5.1); Sodium 138 mmol/L (137-145)
[2018-11-02] MEDS: PANTOPRAZOLE 20 MG TABLET PO (05:54)
[2018-11-02 07:22] VITALS: BP 140/65; PULSE 68; RESP 16; TEMP 36.8; O2SAT 98
[2018-11-02] MEDS: ENOXAPARIN 40 MG/0.4 ML SYRINGE SUBCUT (08:39)
[2018-11-02] MEDS: AMLODIPINE 5 MG TABLET PO (08:39)
[2018-11-02] MEDS: ASPIRIN EC 81 MG TABLET PO (08:39)
--- NOTE | 2018-11-02 09:10 | CM.DANOTE ---
DCP: Case received, EMR reviewed and met with patient. Introduced self and role. Baseline history and health information obtained from patient. DCP assessment completed with information currently available. Patient is an 78 year old female who admitted yesterday evening to the care of the hospitalist team. PCP: Dr. Horowitz. Payer: confirmed: Medicare/[employer]. Patient came to hospital via family vehicle due to symptoms of severe headache, and numbness to her left hand and lower extremity. Patient has history of non-insulin diabetes, and was noted to have an increased blood pressure upon admit. At this time, patient holds diagnosis of TIA, but is expected to have MRI today. Met with patient in her room. Pleasant demeanor. Alert and oriented. Lives in [place] with her spouse, Jossue. She stated that they had just celebrated their 49 anniversary at [place]. Patient is independent. She stated, she likes to stay active and busy. She mentioned, she has never had a headache like this before, as well as the numbness, which is why she came here. She stated, she is now feeling better, and is hoping to go home after the MRI. P: DCP to continue to follow. Will see how MRI is today, and may be able to go home. Natalie Zuniga RN/[employer]
[2018-11-02 11:23] VITALS: BP 151/73; PULSE 77; RESP 16; TEMP 36.4; O2SAT 97
--- NOTE | 2018-11-02 11:45 | ST.IPCSEOM ---
Care Team Visit Care Team Role Provider Type Timbo Horowitz MD Family Provider Physician Primary Care Provider Specialty: Family Practice Address: [address], [place], [address] Email: Torin Patel DO Emergency Provider Physician Specialty: Emergency Medicine Address: [address] [place] [address], [id number] Email: YG Luciano Admit Provider Physician Attending Provider Specialty: Internal Medicine Address: [address] [place] [address], [id number] Email: Past Medical History (Last Reviewed 11/02/18 @ 01:55 by Torin Patel DO) Diabetes type 2, controlled (Acute Medical) Gastroesophageal reflux (Acute Medical) History of fracture of left ankle (Acute Medical) History of pelvic fracture (Acute Medical) Hyperlipidemia (Acute Medical) Hypertension (Acute Medical) Irritable bladder (Acute Medical) Speech-Language Pathology 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 Clinical Swallow Evaluation Start: 11/02/18 11:28 Freq: Status: Active Protocol: Document 11/02/18 11:29 LNK (Rec: 11/02/18 11:44 [email or web address]) Clinical Swallow Evaluation Session Time Visit Start Time 11:10 Visit Stop Time 11:30 Total Visit Minutes 20 Setting Assessment Location Acute Care Visit Type Note Type Initial Evaluation Patient Information Identification Type Name ID Wristband History Gerda Pak is an 78-year -old female patient with history significant for non insulin-dependent type 2 diabetes, hypertension and hyperlipidemia who presents to the ER with complaints of left-sided weakness. The patient provides a history that he had wok at 4 a.m. with the worst headache ever. She described the headache as at the crown of her head without radiation, visual changes, neck pain or nausea. She states waking in the morning feeling her headache was better but not resolved and feeling ?like my head is filled with cotton wool. She further describes an episode of left hand ?locking up? that after several minutes she is able to relax her fingers regaining baseline dexterity. She reports left leg weakness stating she feels like she is dragging her left leg. Pt's symptoms were reported to have resolve before admission to the ER. Subjective Observations Pt just returned from MRI. She was sitting upright in bedside chair with family present. Evaluation Liquids Trialed Thin Solids Trialed Regular Administration Type Self-Feeding Oral Impairment WFL Oral Phase Comments OM examination indicated structures and function WFL. Adequate dentition for mastication bolus formation and transit A-P. No oral residue observed. Pharyngeal Impairment WFL Pharyngeal Phase Comments Adequate hyolaryngeal elevation and forward excursion, prompt swallow response, no cough/choke, no wet voicing observed. Findings Impressions Pt presented with oral/ pharyngeal phases of swallowing WFL. Diet Recommendations Liquids Order Thin Diet Order Regular Medication Recommendations As Tolerated Aspiration Precautions Recommended Precautions Upright at 90 Degrees Treatment Plan Placement Recommendations after Home Discharge Appropriate for Therapy No
--- NOTE | 2018-11-02 13:12 | P.DS_ITS ---
History of Present Illness Chief complaint: left hand/leg numbness/severe headache xtoday Narrative: Gerda Pak is an 78-year-old female patient with history significant for non insulin-dependent type 2 diabetes, hypertension and hyp erlipidemia who presents to the ER with complaints of left-sided weakness. The patient provides a history that he had wok at 4 a.m. with the worst headache ever. She described the headache as at the crown of her head without radiation, visual changes, neck pain or nausea. She states at that time she took Advil and returned to bed waking in the morning feeling her headache was better but not resolved and feeling ?like my head is filled with cotton wool. She further describes an episode of left hand ?locking up? that after several minutes she is able to relax her fingers regaining baseline dexterity. She reports left leg weakness stating she feels like she is dragging her left leg. The patient reports no antecedent complaints of recent illness fever or chills, nasal congestion or sore throat. She reports experiencing no visual changes or difficulty swallowing. Denies neck pain or back pain and has no chest pain or palpitations, shortness of breath, cough or wheezing. She denies complaints of abdominal pain and has had no nausea or vomiting and denies complaints of constipation or diarrhea. She does have a history of GERD and has been taking esomeprazole chronically with no symptoms. She does endorse a history of frequent urination and a ?weak bladder?. She has no prior history of ataxia or falls. In the ER the patient presented with an elevated blood pressure of 186/64. Heart rate 93, respirations of 22 saturating 99% on room air upon arrival to the floor a temperature was taken and and the patient found to be afebrile at 97.3 with blood pressure of 151/53. The patient is evaluated as a code stroke in the ER with a CT obtained finding no acute intracranial process. CTA found no significant vascular lesions or occlusion, stenosis, and vertebral or intracra nial vasculature. Laboratory studies completed in the ER found CBC within normal range as well as coagulation studies. On chemistry sodium is noted to be low at 130 with normal potassium of 4.4 and preserve renal function with a BUN of 16 and creatinine 0.9 and blood sugar of 92. Patient is admitted to the hospital for TIA necessitating ongoing evaluation and monitoring. Discharge Providers Date of admission: 11/01/18 21:36 Discharge Date: 11/02/18 Primary care physician: Timbo Horowitz MD Consults: 11/01/18 22:13 Consult to Occupational Therapy Evaluate & Treat Comment: Physician Instructions: Evaluate and treat Consult to Physical Therapy Evaluate & Treat Comment: TIA, left leg weakness Physician Instructions: Evaluate and Treat 11/01/18 22:14 Consult to Discharge Planning Routine Comment: 11/01/18 22:16 Consult to Speech Therapy Evaluate & Treat Comment: TIA Physician Instructions: Evaluate and treat Discharge provider: Rosemary Leonard MD Summary Discharge Diagnosis: 1. Transient ischemic attack 2. Hypertension 3. Type 2 diabetes 4. Hyperlipidemia 5. Subclavian artery stenosis 6. Common carotid artery stenosis Hospital Course: Patient was admitted to the hospital for evaluation of a possible TIA. Her presenting symptoms was left leg weakness left hand splint and headache. Her symptoms completely resolved. She was seen by speech therapy and deemed not to have need for speech pathology. The patient had no further focal deficits. She did not require physical therapy or occupational therapy evaluation. She did undergo an MRI of her brain. Findings are as follows : MPRESSION: BRAIN MRI: 1. No acute process. No recent infarct. 2. Mild volume loss. Minimal small vessel ischemic disease. BRAIN MR ANGIOGRAM: 1. Negative cerebral MR angiography. NECK MR ANGIOGRAM: 1. No internal carotid artery stenosis nor vertebral artery stenosis bilaterally, as before. 2. 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 3. 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 Patient was deemed appropriate for discharge and arrangements were made for her to be discharged home. Status at Discharge Cognitive/behavioral status at discharge: oriented Functional status at discharge: independent ambulation Overall status at discharge: patient is back to baseline Time Spent with Patient Less than 30 minutes Exam Vital Signs (past 8 hours): - 11/02/18 07:22 11/02/18 11:23 Temperature 98.2 F 97.5 F L Pulse Rate 68 77 Respiratory Rate 16 16 Blood Pressure 140/65 151/73 H Pulse Oximetry 98 97 Oxygen Delivery Method Room Air Oxygen Flow Rate 0 Narrative Exam Narrative: Pleasant female in no acute distress HEENT: Normocephalic atraumatic, extraocular muscles are intact speech is fluent there is no facial droop, oropharynx is clear Lungs: Clear to auscultation Cardiac exam: Regular rate and rhythm normal S1-S2 Abdomen: Soft and nontender Neuro exam: Cranial nerves 2-12 are intact, strength is symmetric and equal, sensation is grossly intact reflexes are brisk and equal, she has no pronator drift, minimal shaking with [id number] bilaterally. Objective Labs Result Diagrams: 11/01/18 18:18 11/02/18 04:58 Labs: Laboratory Results - last 24 hr 11/01/18 11/01/18 11/01/18 18:18 18:18 18:18 WBC 6.4 RBC 4.45 Hgb 13.4 Hct 38.8 MCV 87.1 MCH 30.2 MCHC 34.6 RDW 13.4 Plt Count 299 Neut % (Auto) 41.3 L Lymph % (Auto) 49.5 H [place] % (Auto) 7.0 Eos % (Auto) 1.6 L Baso % (Auto) 0.6 Neut # (Auto) 2600 Lymph # (Auto) 3200 [place] # (Auto) 400 Eos # (Auto) 100 Baso # (Auto) 0 PT 10.5 INR 0.9 APTT 33 Sodium 130 L Potassium 4.4 Chloride 93 L Carbon Dioxide 27 BUN 16 Creatinine 0.90 Estimated GFR > 60.0 BUN/Creatinine Ratio 17.8 Glucose 92 Calcium 10.1 Magnesium Total Bilirubin 0.7 AST 24 ALT 26 Alkaline Phosphatase 71 Total Protein 7.3 Albumin 4.6 Globulin 2.7 Albumin/Globulin Ratio 1.7 Triglycerides Cholesterol LDL Cholesterol, Calc HDL Cholesterol Ethyl Alcohol < 10 11/02/18 11/02/18 11/02/18 04:58 04:58 04:58 WBC RBC Hgb Hct MCV MCH MCHC RDW Plt Count Neut % (Auto) Lymph % (Auto) [place] % (Auto) Eos % (Auto) Baso % (Auto) Neut # (Auto) Lymph # (Auto) [place] # (Auto) Eos # (Auto) Baso # (Auto) PT INR APTT Sodium 138 Potassium 4.1 Chloride 101 Carbon Dioxide 28 BUN 11 Creatinine 0.80 Estimated GFR > 60.0 BUN/Creatinine Ratio 13.8 Glucose 107 Calcium 10.0 Magnesium 1.9 Total Bilirubin AST ALT Alkaline Phosphatase Total Protein Albumin Globulin Albumin/Globulin Ratio Triglycerides 160 H Cholesterol 186 LDL Cholesterol, Calc 84 HDL Cholesterol 70 H Ethyl Alcohol Discharge Plan Discharge Plan Discharge Problem: Transient cerebral ischemia, Headache Patient Disposition: Home Discharge Med Rec/Prescriptions Prescriptions: New aspirin 81 mg Tablet,Delayed Release (Dr/Ec) 81 mg PO DAILY 30 Days RF: 0 Continued simvastatin 40 MG tablet 40 mg PO BEDTIME Qty: 0 RF: 0 esomeprazole magnesium [Nexium] 20 mg Capsule,Delayed Release(Dr/Ec) 20 mg PO QDAY@0600 Qty: 0 RF: 0 amlodipine 5 mg tablet 5 mg PO DAILY RF: 0 metformin 500 mg tablet extended release 24 hr 1,000 mg PO BID RF: 0 loratadine 10 mg tablet 10 mg PO DAILY RF: 0 Follow up/Referrals: Timbo Horowitz MD [Primary Care Provider] - Provider Discharge Instructions Diet: Carb-consistent/Diabetic, Low-sodium and Low-cholesterol Diet comment: 2 g sodium diet Activity: As tolerated Discharge Data Primary Care Provider: Timbo Horowitz Attending Provider: Carlos Enrique Bell Admit Date/Time: 11/01/18 21:36
--- NOTE | 2018-11-02 14:18 | OT.IP.TRT ---
Occupational Therapy Treatment Note M3 OT- IP Subjective and Pain Start: 11/02/18 14:16 Freq: Status: Active Protocol: Document 11/02/18 14:16 PJNakia (Rec: 11/02/18 14:18 PJM [id number]) OT- Subjective Occupational Therapy Visit Type Type Administrative Note Visit Start Time 14:08 Visit Stop Time 14:13 Total Visit Minutes 5 Notes OT referral received on this 78 yr old pt admitted with headache and L side weakness. MRI negative. DX: TIA with all symptoms resolved. Pt dressed independently prior to therapist arrival and ambulating without a device ad brayan in room. Pt/ feel pt back to baseline and per Dr Leonard no OT eval needed. Pt plans to d/c home today. No charge.
--- NOTE | 2018-11-02 15:22 | PT.IPTN ---
Physical Therapy Treatment Note M3 PT-IP Subjective Start: 11/02/18 15:21 Freq: NEEDED Status: Active Protocol: Document 11/02/18 15:21 AB (Rec: 11/02/18 15:22 AB [id number]) Subjective Physical Therapy Visit Type Notes pt went home. per doctor's discharge order: pt does not need PT/OT eval.
== END 2018-11-02 14:45 | disposition home or self-care (01) ==
LOC: ED 21:19 → AC 21:37
PROVIDERS: Admitting Provider Nurse Practitioner Adult Health; Emergency Provider Emergency Medicine; Family Provider Family Medicine; PCP Family Medicine; Visit Provider Nurse Practitioner Adult Health
DX: G45.9 Transient cerebral ischemic attack, unspecified (principal); R29.818 Other symptoms and signs involving the nervous system; E11.9 Type 2 diabetes mellitus without complications; E78.5 Hyperlipidemia, unspecified; I10 Essential (primary) hypertension; Z87.891 Personal history of nicotine dependence; R51 Headache; Z79.84 Long term (current) use of oral hypoglycemic drugs; K21.9 Gastro-esophageal reflux disease without esophagitis; I25.10 Atherosclerotic heart disease of native coronary artery without angina pectoris; I70.8 Atherosclerosis of other arteries
CPT/HCPCS: 36415; 70450; 70496; 70498; 70548; 70553; 80048; 80053; 80061; 80320; 82962; 83735; 85025; 85610; 85730; 92610; 93005; 93306; 96360; 96372; 99285; G0378; J1650; Q9967

== ENCOUNTER → 2019-01-05 11:49 | Outpatient (CLI) | payer MEDICARE, OTHER, SELFPAY ==
[2018-11-01 22:24] VITALS: BMI 32.6
--- NOTE | 2019-01-05 | DI.RAD.S_ITS ---
PROCEDURE: XR SHOULDER RT MIN 2V INDICATIONS: RT SHOULDER PAIN TECHNIQUE: 3 views of the shoulder were acquired. COMPARISON: None. FINDINGS: Bones: No fractures or dislocations. No suspicious bony lesions. Visualized ribs appear intact. Glenohumeral and AC joint spurring. Soft tissues: No suspicious soft tissue calcifications. IMPRESSION: Mild joint degeneration. Dictated by: Tomas Booker M.D. on 01/05/2019 at 15:56 Approved by: Tomas Booker M.D. on 01/05/2019 at 15:57
== END ==
PROVIDERS: PCP Family Medicine; Visit Provider Family Medicine
DX: M25.511 Pain in right shoulder (principal); M19.011 Primary osteoarthritis, right shoulder
CPT/HCPCS: 73030

== ENCOUNTER → 2019-07-18 11:21 | Outpatient (CLI) | payer MEDICARE, OTHER, SELFPAY ==
[2018-11-01 22:24] VITALS: BMI 32.6
--- NOTE | 2019-07-18 | DI.RAD.S_ITS ---
PROCEDURE: XR CHEST 2V INDICATIONS: Shortness of breath TECHNIQUE: 2 views of the chest were acquired. COMPARISON: [facility], CR, XR CHEST 2V, 09/12/2018, 14:01. FINDINGS: Surgical changes and devices: None. Lungs and pleura: Lungs are clear. No pleural effusions or pneumothorax. Mediastinum: Mediastinal contours are normal. Heart size is normal. Bones and chest wall: No suspicious bony abnormalities. Lateral curvature of the spine Soft tissues appear unremarkable. IMPRESSION: No acute disease Dictated by: Tomas Booker M.D. on 07/18/2019 at 15:49 Approved by: Tomas Booker M.D. on 07/18/2019 at 15:52
== END ==
PROVIDERS: PCP Family Medicine; Referring Provider Family Medicine; Visit Provider Family Medicine
DX: R06.02 Shortness of breath (principal)
CPT/HCPCS: 71046

== ENCOUNTER → 2019-08-15 15:46 | Outpatient (CLI) | payer MEDICARE, OTHER, SELFPAY ==
[2018-11-01 22:24] VITALS: BMI 32.6
--- NOTE | 2019-08-15 | DI.ECHO.S_ITS ---
[facility] + [facility] +---------+ : : [address] : : : : [place], : : : : [place] [id number] : : : : Phone: [phone] + [id number] Echocardiogram Report + + :Name: FREDDIE CALLEJAS Study Date: 08/15/2019 Height: 60 in : :[facility] Exam Location: IS Weight: 165 lb : : Gender: Female BSA: 1.7 m2 : :: 1940 Age: 79 yrs BP: 105/70 mmHg: :Reason For Study: SOB : : Performed By: Luzmaria Page : :Referring: ZULEYMA COLLINS : + + Interpretation Summary Left ventricular systolic function is borderline reduced with the ejection fraction visually estimated to be 50-55%. There is a suggestion of hypokinesis in the mid and distal inferior septum, inferior wall, and inferoposterior wall although the endocardium is not well visualized. This was not seen on the previous study but specificity is reduced because of the marginal image quality on today's study. Diastolic function could not be accurately assessed due to contradictory data. The right ventricle is normal in size and function and is unchanged compared to the previous study. Pulmonary artery pressures cannot be estimated because of the lack of a measurable TR jet velocity but the IVC suggests a CVP of around 3 mmHg. The left atrium is moderately dilated while right atrial size is normal. Both atria have significantly increased in size since the prior echo exam. There is moderate mitral regurgitation that is more prominent compared to the previous study. There is no other significant valvular heart disease. Procedure: A two-dimensional transthoracic echocardiogram with color flow and Doppler was performed. The study quality was technically adequate. Comparison is made with the echocardiogram of 11/02/2018. The patient was in normal sinus rhythm during the exam. Left Ventricle: The left ventricle is normal in size and wall thickness. Left ventricular systolic function is borderline reduced. The ejection fraction is estimated to be 50-55%. There is a suggestion of hypokinesis in the mid and distal inferior septum, inferior wall, and inferoposterior wall although the endocardium is not well visualized. This was not seen on the previous study but specificity is reduced because of the marginal image quality. Diastolic function could not be accurately assessed due to contradictory data. Right Ventricle: The right ventricle is normal in size and function. This is unchanged compared to the previous study. Atria: The left atrium is moderately dilated. Both atria have significantly increased in size since the prior echo exam. Right atrial size is normal. Doppler interrogation and injection of saline echo contrast shows no evidence for an interatrial shunt. Mitral Valve: There is mild mitral annular calcification. The mitral valve leaflets are mildly calcified. There is moderate mitral regurgitation. This is More prominent compared to the previous study. Aortic Valve: The aortic valve is trileaflet. The aortic valve opens well. No aortic regurgitation is present. Tricuspid Valve: The tricuspid valve is normal in structure and function. There is trace tricuspid regurgitation. Pulmonary artery pressures cannot be estimated because of the lack of a measurable TR jet velocity but the IVC suggests a CVP of around 3 mmHg. Pulmonic Valve: The pulmonic valve is not well seen, but is grossly normal. There is trace pulmonic regurgitation. There is no other significant valvular heart disease. Great Vessels: The aortic root is normal size. The ascending aorta is normal in size. The pulmonary artery is not well visualized, but is probably normal size. The IVC is of normal diameter and collapses greater than 50% with a sniff. This suggests a low right atrial pressure of 3 mm Hg. Pericardium/ Pleura There is no pericardial effusion. There is no pleural effusion. MMode/2D Measurements & Calculations LVIDd: 4.8 cm AoV Openin.6 cm LVIDs: 3.7 cm LVOT diam: 1.8 cm IVSd: 0.67 cm Ao root diam: 2.6 cm LVPWd: 0.85 cm asc Aorta Diam: 3.2 cm LV hallman. diameter/BSA (cm/m^2): 2.8 LV sys. diameter/BSA (cm/m^2): 2.1 FS: 22.8 % EPSS: 0.79 cm LA A2 area: 21.1 cm2 RA long axis: 4.1 cm LA A4 area: 21.5 cm2 RA area: 14.5 cm2 LA length (vol): 5.1 cm RA vol: 43.5 ml LA vol: 75.0 ml RA : 25.3 ml/m2 LA vol index: 43.6 ml/m2 RVD1 (basal): 3.5 cm IVC diam: 1.6 cm TAPSE: 2.0 cm Doppler Measurements & Calculations Ao V2 max: 152.6 cm/sec LVOT Max Myles: 94.4 cm/sec Ao V2 mean: 109.6 cm/sec LV V1 max P.6 mmHg Ao V2 VTI: 31.1 cm LV V1 VTI: 18.7 cm Ao max P.3 mmHg Ao mean P.2 mmHg RITO(I,D): 1.6 cm2 MV E max myles: 95.3 cm/sec RITO(V,D): 1.6 cm2 MV A max myles: 97.9 cm/sec RITO indexed to BSA (cm^2/m^2): 0.91 MV E/A: 0.97 sev ratio: 0.60 Med Peak E' Myles: 3.7 cm/sec E/E' med: 25.9 Lat Peak E' Myles: 9.1 cm/sec E/E' lat: 10.5 E/e' average: 18.2 MV dec time: 0.17 sec TR max myles: 221.6 cm/sec MV P1/2t: 50.3 msec TR max P.6 mmHg MVA(P1/2t): 4.4 cm2 PA V2 max: 78.8 cm/sec MR VTI: 178.4 cm PA V2 mean: 57.8 cm/sec PA mean P.4 mmHg PA Accel Time: 0.10 sec SV(LVOT): 48.7 ml Reading Physician:VAIBHAV
== END ==
PROVIDERS: PCP Family Medicine; Referring Provider Family Medicine; Visit Provider Family Medicine
DX: I34.0 Nonrheumatic mitral (valve) insufficiency (principal); R06.02 Shortness of breath
CPT/HCPCS: 93306

== ENCOUNTER → 2021-02-17 11:58 | Outpatient (CLI) | payer MEDICARE, OTHER, SELFPAY ==
[2018-11-01 22:24] VITALS: BMI 32.6
--- NOTE | 2021-02-17 | DI.US.S_ITS ---
PROCEDURE: US ABDOMEN COMPLETE INDICATIONS: COLITIS TECHNIQUE: Real-time scanning was performed of the abdominal and retroperitoneal organs, with image documentation. COMPARISON: [facility], US, ABDOMEN COMPLETE, 03/04/2008, 10:32. [facility], US, US PELVIC COMPLETE, 02/17/2021, 12:39. [facility], US, US ABDOMEN COMPLETE, 02/17/2018, 14:11. FINDINGS: Liver: Liver is normal in size and homogeneous in echotexture. Gallbladder: No findings of gallstones or sludge are seen. The gallbladder wall is not thickened, measuring 3 mm or less. No specific pericholecystic fluid is seen. The sonographic Domingo sign is negative. Biliary ducts: Intrahepatic bile ducts are non-dilated. Extrahepatic bile duct caliber measures 6 mm. Normal is 6-7 mm or less in diameter, or 10 mm or less post-cholecystectomy. Pancreas: Visualized portions of the pancreas are sonographically normal. Spleen: Spleen is normal in size and homogeneous in echotexture. Kidneys: Kidneys are normal in size and echotexture. Right kidney measures 9.1 cm long; left kidney measures 9.4 cm long. No hydronephrosis or nephrolithiasis. No solid masses. Bilateral simple appearing renal cysts are seen. Aorta: Visualized aorta is normal in caliber at less than 3 cm. Iliacs: Proximal common iliac arteries are normal in caliber at less than 2.5 cm. IVC: Intrahepatic inferior vena cava is patent. Miscellaneous: No free abdominal fluid. IMPRESSION: A cause of the patient's symptoms is not observed on this study. The gallbladder demonstrates a normal sonographic appearance. No biliary dilatation is seen. Dictated by: Placido Oliver M.D. on 02/17/2021 at 12:18 Approved by: Placido Oliver M.D. on 02/17/2021 at 12:19
--- NOTE | 2021-02-17 | DI.US.S_ITS ---
PROCEDURE: US PELVIC COMPLETE INDICATIONS: COLITIS TECHNIQUE: Real-time scanning was performed of the pelvic organs, with image documentation. Additional endovaginal scanning was necessary due to incomplete visualization of the adnexal and endometrial structures by transabdominal scanning. COMPARISON: [facility], , US ABDOMEN COMPLETE, 02/17/2021, 12:18. [facility], PELVIC COMPLETE, 03/04/2008, 10:25. FINDINGS: Uterus: Hysterectomy. Ovaries: Neither ovary is seen and there is a history of oophorectomy. No adnexal masses are seen on either side. Other: No pathologic free abdominal or pelvic fluid. The postvoid bladder volume is 136 cc. IMPRESSION: Moderate postvoid residual. Status post hysterectomy and oophorectomy. No adnexal masses are seen on either side. Dictated by: Placido Oliver M.D. on 02/17/2021 at 12:20 Approved by: Placido Oliver M.D. on 02/17/2021 at 12:21
== END ==
PROVIDERS: PCP Family Medicine; Referring Provider Family Medicine; Visit Provider Family Medicine
DX: K57.30 Diverticulosis of large intestine without perforation or abscess without bleeding (principal)
CPT/HCPCS: 76700; 76830; 76856

== ENCOUNTER 2021-03-18 16:18 | Inpatient (IN) | payer MEDICARE, OTHER, SELFPAY ==
[2018-11-01 22:24] VITALS: BMI 32.6
[2021-03-18] VITALS (18 sets, daily range): BP systolic 149–193; BP diastolic 61–118; PULSE 69–95; RESP 14–27; TEMP 36.2–36.8; O2SAT 91–100; BMI 33.0
--- NOTE | 2021-03-18 | DI.CT.S_ITS ---
PROCEDURE: CT ANGIO ABDOMEN PELVIS INDICATIONS: SYNCOPE/ POSSIBLE ANEURYSM TECHNIQUE: After the administration of intravenous contrast, 2.5 mm thick sections acquired from the diaphragm to the symphysis. 10 mm maximum-intensity projection (MIP) reformats were then acquired. For radiation dose reduction, the following was used: automated exposure control. COMPARISON: None. FINDINGS: Image quality: Excellent. Aorta: Diffuse atherosclerotic aortic vascular calcification noted without evidence of aneurysm dissection. Origins of both renal arteries show less than 10 percent stenosis celiac and mesenteric arteries origins are widely patent Mesenteric arteries: Celiac trunk, superior and inferior mesenteric arteries appear patent. Right/left pelvic arteries: Atherosclerotic vascular calcification without stenosis or aneurysm. Extravascular soft tissues: Lung bases are clear. Heart size is normal. Liver is normal in size and enhancement. Gallbladder unremarkable . Biliary system is non dilated. Pancreas enhances normally. Spleen is normal in size and enhancement. No adrenal nodules. Kidneys are normal in size and enhancement, without hydronephrosis. Non opacified bowel loops are normal in wall thickness and caliber. No free fluid or air. No retroperitoneal or mesenteric adenopathy. No ventral hernias. No suspicious bony lesions. No vertebral body compression fractures. In the proximal duodenum, there is mild wall thickening and adjacent inflammatory change which could reflect mild duodenitis. No obstruction. Multiple diverticula arise from the sigmoid colon without evidence of acute diverticulitis. Degenerative changes present in the lower lumbar spine including bilateral L5 spondylolysis with grade 2 anterior spondylolisthesis resulting in severe bilateral foraminal stenosis. Old healed right inferior pubic rami fractures noted. IMPRESSION: 1. Aortic atherosclerotic vascular calcification without focal aneurysm or dissection. 2. Probable mild duodenitis. Mild wall thickening and adjacent inflammatory change noted without obstruction. 3. L5-S1 grade 2 isthmic spondylolisthesis Approved by: Nate Thomas M.D. on 03/18/2021 at 17:44
--- NOTE | 2021-03-18 16:28 | DI.RAD.S_ITS ---
PROCEDURE: XR CHEST 1V INDICATIONS: chest pain TECHNIQUE: One view of the chest was acquired. COMPARISON: [facility], CR, XR CHEST 2V, 09/12/2018, 14:01. [facility], CR, XR CHEST 2V, 07/18/2019, 11:21. FINDINGS: Surgical changes and devices: Post CABG changes are seen. Wire fragments can be seen involving the right superior thorax. Lungs and pleura: On this semiupright portable chest examination, no large pneumothorax or large pleural effusions are seen. No focal infiltrates are seen. Low lung volumes are noted. This causes a crowded appearance to the lung markings and limits evaluation. Mediastinum: The cardiac contours are within normal limits. The aorta demonstrates calcification and tortuosity. Bones and chest wall: Age-appropriate bony degenerative changes are seen. Mild dextroconvex scoliotic curvature is seen. No suspicious bony lesions. Overlying soft tissues appear unremarkable. IMPRESSION: Limited portable chest examination, without a significant cardiopulmonary abnormality identified. Postoperative and degenerative changes are seen. Dictated by: Placido Oliver M.D. on 03/18/2021 at 15:50 Approved by: Placido Oliver M.D. on 03/18/2021 at 15:54
--- NOTE | 2021-03-18 16:51 | ED.GENADULT ---
HPI - General Adult General Chief complaint: Syncope Stated complaint: fainted sun- pain in bowel/lower abd Time Seen by Provider: 03/18/21 16:29 Source: patient Mode of arrival: Ambulatory History of Present Illness HPI narrative: Patient is an 81-year-old female. History of coronary artery disease. Approximately 15 months status post 5 way coronary artery bypass graft. She is on anticoagulation for this. States that in the past she has passed out for unknown reasons but has not done this in some time. On Tuesday she was getting out of the shower. Became lightheaded. She states that she was able to make it to her bed. She thinks that she did pass out completely. She stated that she is unsure as to how long she was out but afterwards she woke up and felt better however was still somewhat ?foggy ?and ?off ?she denied any chest pain. No shortness of breath. No palpitations. No abdominal pain. No nausea vomiting. No urinary symptoms. The will on Tuesday she stated that she continued to have these unusual feelings. On Tuesday she started to develop some lower abdominal discomfort and then started having some black colored stool. That continued until today. No fevers. His taking all of her medications as directed. Related Data Home Medications Medication Instructions Recorded Confirmed aspirin 81 mg tablet 81 mg PO DAILY 03/18/21 03/18/21 atorvastatin 80 mg tablet 80 mg PO DAILY 03/18/21 03/18/21 metoprolol tartrate 25 mg tablet 12.5 mg PO BID 03/18/21 03/18/21 nitroglycerin 0.4 mg sublingual 0.4 mg SUBLINGUAL Q5M PRN 03/18/21 03/18/21 tablet Allergies Allergy/AdvReac Type Severity Reaction Status Date / Time Sulfa (Sulfonamide Allergy Mild RASH Verified 11/01/18 18:38 Antibiotics) Review of Systems Constitutional Constitutional: Denies fever(s), Denies frequent falls, Denies headache(s), Reports lethargy and Reports malaise Eyes Eyes: Denies change in vision ENT Ears, Nose, Mouth, and Throat: Denies headache(s) and Denies sore throat Cardiovascular Cardiovascular: Denies chest pain, Reports syncope and Denies dyspnea Respiratory Respiratory: Denies cough and Denies dyspnea Gastrointestinal Gastrointestinal: Reports abdominal pain, Reports melena, Denies hematochezia, Reports constipation, Denies nausea and Denies vomiting Genitourinary Genitourinary: Reports system reviewed and no additional complaints, except as documented Musculoskeletal Musculoskeletal: Reports system reviewed and no additional complaints, except as documented and Reports as per HPI Integumentary/Breasts Skin/Breast: Reports system reviewed and no additional complaints, except as documented Neurologic Neurologic: Reports syncope, Denies frequent falls and Denies headache(s) Psychiatric Psychiatric: Reports system reviewed and no additional complaints, except as documented Hematologic/Lymphatic On Anticoagulants: Yes Allergic/Immunologic Allergic/Immunologic: Reports system reviewed and no additional complaints, except as documented Patient History Medical History Diabetes type 2, controlled Gastroesophageal reflux History of fracture of left ankle History of pelvic fracture Hyperlipidemia Hypertension Irritable bladder Surgical History History of bladder suspension procedure History of breast biopsy History of D&C History of hysterectomy History of pelvic surgery Family History (Updated 11/01/18 @ 23:08 by YG Luciano) Father Hypertension Mother Cancer Brother Stroke Brother Heart attack Brother Heart attack Sister Cancer Social History household members: spouse Smoking Status: Former smoker alcohol intake: never Smoking Status: Former smoker Substance Use Type: does not use Exam Initial Vital Signs Initial Vital Signs: Vital Signs Temperature 97.2 F L 03/18/21 16:23 Pulse Rate 95 H 03/18/21 16:23 Respiratory Rate 22 03/18/21 16:23 Blood Pressure 169/70 H 03/18/21 16:23 Pulse Oximetry 100 03/18/21 16:23 Const General: cooperative, healthy appearing, comfortable and well developed [facility] Head: normal to inspection and normocephalic Eyes General: appearance normal, both eyes and all related structures Neck Neck: normal visual inspection Resp Effort & Inspection: normal respiratory effort Auscultation: clear to auscultation bilaterally Cardio Rate: regular rate Rhythm: regular rhythm GI Inspection: normal to inspection and non-distended Palpation: soft and tender (Lower left side abdomen) Rectal Exam: visual inspection normal, heme positive stool and No mass Back/Spine/Pelvis Back: normal to inspection Skin General: no rashes or lesions noted Neuro General: patient alert, patient awake, patient oriented x3 and moves all extremities Extrem General: capillary refill normal Psych Appearance: grossly normal and well kempt Course Orders Ordered: ED Orders 03/18/21 16:28 XR chest 1V Stat 03/18/21 16:33 EKG-12 Lead Stat 03/18/21 16:58 Complete Blood Count AUTO DIFF Stat Comprehensive Metabolic Panel Stat Lipase Stat Partial Thromboplastin Time Stat Prothrombin Time INR Stat Troponin & CK Cardiac Panel Stat Type and Screen Stat 03/18/21 17:35 COVID19 - ADMIT ([employer] [employer] PROVIDER swab/PCR) Stat Sodium Chloride (Normal Saline 0.9%) 1,000 mls @ 500 mls/hr IV BOLUS ONE Stop: 03/18/21 18:52 Last Admin: 03/18/21 17:00 Dose: 500 mls/hr Documented by: KATHLEEN Vital Signs Vital signs: Vital Signs - 8 hr 03/18/21 16:23 03/18/21 17:19 03/18/21 17:30 Temperature 97.2 F L Pulse Rate 95 H 74 89 Respiratory Rate 22 19 24 Blood Pressure 169/70 H Pulse Oximetry 100 100 03/18/21 17:31 Temperature Pulse Rate 86 Respiratory Rate 26 H Blood Pressure 169/118 H Pulse Oximetry 100 Medical Decision Making Lab Data Lab results reviewed: Yes I reviewed the patient's lab results. Result diagrams: 03/18/21 16:58 03/18/21 16:58 Labs: Lab Results 03/18/21 03/18/21 03/18/21 Range/Units 16:58 16:58 16:58 WBC 7.5 (4.5-11.0) X10^3/uL RBC 2.79 L (4.0-5.2) X10^6/uL Hgb 8.5 L (12.0-16.0) g/dL Hct 25.2 L (36-46) % MCV 90.2 (80-100) fL MCH 30.6 (26-34) PG MCHC 33.9 (30-36) % RDW 13.7 (11.6-14.8) % Plt Count 321 (150-400) X10^3/uL Neut % (Auto) 60.3 (50-75) % Lymph % (Auto) 31.4 (25-40) % [place] % (Auto) 6.3 (3-14) % Eos % (Auto) 1.5 L (2-4) % Baso % (Auto) 0.5 (0-2) % Neut # (Auto) 4500 (2860-3435) /uL Lymph # (Auto) 2400 (6140-3679) /uL [place] # (Auto) 500 (0-900) /uL Eos # (Auto) 100 (0-450) /uL Baso # (Auto) 0 (0-100) /uL PT 11.1 (10.1-12.7) SECONDS INR 1.0 (0.9-1.3) APTT 24 L D (26.4-36.2) SECONDS Sodium 137 (137-145) mmol/L Potassium 4.1 (3.4-5.1) mmol/L Chloride 104 (98-107) mmol/L Carbon Dioxide 26 (22-32) mmol/L BUN 26 H (7-17) mg/dL Creatinine 0.94 (0.52-1.04) mg/dL Estimated GFR 56.9 L (>60) mL/min BUN/Creatinine Ratio 27.7 H (6-22) Glucose 144 H (80-110) mg/dL Calcium 9.6 (8.4-10.2) mg/dL Total Bilirubin 0.5 (0.2-1.3) mg/dL AST 29 (14-36) IU/L ALT 23 (<35) IU/L Alkaline Phosphatase 94 (38-126) U/L Total Creatine Kinase 47 (30-135) U/L CK-MB (CK-2) TNP CK-MB (CK-2) Rel Index TNP Troponin I < 0.012 (0.01-0.034) ng/mL Total Protein 6.7 (6.3-8.2) g/dL Albumin 4.1 (3.5-5.0) g/dL Globulin 2.6 (1.7-4.1) g/dL Albumin/Globulin Ratio 1.6 (1.0-2.8) Lipase 171 (23-300) U/L Imaging Data Chest x-ray: Radiologist's Impression: [address] [address] XRay Report Signed Patient: Gerda Pak MR#: [id number] : 1940 Acct:[id number] Age/Sex: 81 / F Date of Service: 03/18/21 Loc: ED Accession Number: [id number] ?? Procedure: XR chest 1V Ordering Provider: Torin Patel D.O. PROCEDURE:? XR CHEST 1V ? INDICATIONS:? chest pain ? TECHNIQUE:? One view of the chest was acquired.? ? COMPARISON:? [facility], CR, XR CHEST 2V, 09/12/2018, 14:01.? [facility], CR, XR CHEST 2V, 07/18/2019, 11:21. ? FINDINGS:? ? Surgical changes and devices:? Post CABG changes are seen.? Wire fragments can be seen involving the right superior thorax. ? Lungs and pleura:? On this semiupright portable chest examination, no large pneumothorax or large pleural effusions are seen.? No focal infiltrates are seen.? Low lung volumes are noted. This causes a crowded appearance to the lung markings and limits evaluation.? ? Mediastinum:? The cardiac contours are within normal limits. The aorta demonstrates calcification and tortuosity. ? Bones and chest wall:? Age-appropriate bony degenerative changes are seen.? Mild dextroconvex scoliotic curvature is seen.? ? No suspicious bony lesions.? Overlying soft tissues appear unremarkable.? IMPRESSION:? ? Limited portable chest examination, without a significant cardiopulmonary abnormality identified.? ? Postoperative and degenerative changes are seen.? ? ? Dictated by: Placido Oliver M.D. on 03/18/2021 at 15:50 ? ? Approved by: Placido Oliver M.D. on 03/18/2021 at 15:54?? ECG Data Attestation: I personally reviewed and interpreted this ECG as follows: Prior ECG tracings: not available for review Interpretation: Sinus rhythm Normal axis Normal QRS LVH Nonspecific ST T wave changes MDM Narrative Medical decision making narrative: Initially patient stated that she was on blood thinners however further review of her medication list I believe that she mistook her antihypertensive medicines as blood thinners. She is on an aspirin but does not appear to be on Coumadin or other 10 a inhibitors. Patient not hypotensive. Not tachycardic. Has a relatively benign abdominal exam but does have generalized tenderness. She does have black colored stools that are Hemoccult positive. Hemoglobin and hematocrit today are low however not at the point where she would require immediate blood transfusion. Prior H&H was several years ago. Chest x-ray is unremarkable. CT scan pending. Care turned over to Dr. Zhu to follow-up on CT scan result and disposition. Discharge Plan Departure Prescriptions: No Action atorvastatin 80 mg Tablet 80 mg PO DAILY RF: 0 nitroglycerin 0.4 mg Tablet, Sublingual 0.4 mg SUBLINGUAL Q5M PRN (Reason: Chest Pain) RF: 0 aspirin 81 mg Tablet 81 mg PO DAILY RF: 0 metoprolol tartrate 25 mg Tablet 12.5 mg PO BID RF: 0 Referrals: Timbo Horowitz MD [Primary Care Provider] -
[2021-03-18] MEDS: SODIUM CHLORIDE 0.9% 1,000 ML 500 ML IV (17:00)
[2021-03-18 17:12] LABS: Add Manual Diff / Slide Review NO; Basophils Absolute Auto 0 /uL (0-100); Basophils Percent Auto 0.5 % (0-2); Eosinophils Absolute Auto 100 /uL (0-450); Eosinophils Percent Auto 1.5 % (2-4); Hematocrit 25.2 % (36-46); Hemoglobin 8.5 g/dL (12.0-16.0); Lymphocytes Absolute Auto 2400 /uL (1100-4500); Lymphocytes Percent Auto 31.4 % (25-40); Mean Corpuscular HGB Conc 33.9 % (30-36); Mean Corpuscular Hemoglobin 30.6 PG (26-34); Mean Corpuscular Volume 90.2 fL (80-100); Monocytes Absolute Auto 500 /uL (0-900); Monocytes Percent Auto 6.3 % (3-14); Neutrophils Absolute Auto 4500 /uL (1500-7000); Neutrophils Percent Auto 60.3 % (50-75); Platelet Count 321 X10^3/uL (150-400); Red Blood Cell Count 2.79 X10^6/uL (4.0-5.2); Red Cell Distribution Width 13.7 % (11.6-14.8); White Blood Cell Count 7.5 X10^3/uL (4.5-11.0)
[2021-03-18 17:24] LABS: Prothrombin Time 11.1 SECONDS (10.1-12.7)
[2021-03-18 17:27] LABS: PTT Partial Thromboplastin Tim 24 SECONDS (26.4-36.2)
[2021-03-18 17:28] LABS: Alanine Aminotransferase 23 IU/L (<35); Albumin 4.1 g/dL (3.5-5.0); Albumin Globulin Ratio 1.6 (1.0-2.8); Alkaline Phosphatase 94 U/L (38-126); Aspartate Aminotransferase 29 IU/L (14-36); BUN Creatinine Ratio 27.7 (6-22); Bilirubin Total 0.5 mg/dL (0.2-1.3); Blood Urea Nitrogen 26 mg/dL (7-17); Calcium 9.6 mg/dL (8.4-10.2); Carbon Dioxide 26 mmol/L (22-32); Chloride 104 mmol/L (98-107); Creatine Kinase 47 U/L (30-135); Estimated Glomerular Filt Rate 56.9 mL/min (>60); Globulin 2.6 g/dL (1.7-4.1); Glucose 144 mg/dL (80-110); HEMOLYSIS < 15 (0-50); Lipase 171 U/L (23-300); Potassium 4.1 mmol/L (3.4-5.1); Sodium 137 mmol/L (137-145); Total Protein 6.7 g/dL (6.3-8.2)
[2021-03-18 17:40] LABS: Troponin I < 0.012 ng/mL (0.01-0.034)
[2021-03-18 18:42] LABS: COVID19 - ADMIT (NP swab/PCR) Negative (Negative)
[2021-03-18] MEDS: PANTOPRAZOLE 40 MG VIAL 80 MG IV (20:21)
--- NOTE | 2021-03-18 21:41 | PM.HP.1 ---
History of Present Illness History of Present Illness Date Patient Seen: 03/18/21 Time Patient Seen: 21:00 Chief complaint: FAINTED SUN- PAIN IN BOWEL,LOWER ABD Narrative: Ms. Pak is an 81W with PMH CAD s/p CABG, diet controlled DM, who presents to the hospital with black stools and presyncope. Her states she hasn't had her normal amount of energy for weeks. She states that she was showering on Tuesday when she began to feel lightheaded, she was able to get to her bed where she passed out. She felt better once getting up. She has continued to feel lightheaded and imbalanced. Tuesday she noted she had lower abdominal discomfort and dark colored stool. No significant diarrhea. No brbpr. No vomiting. No fevers/chills. She has decreased appetite. She notes her last colonoscopy was when she was 68 years old. She has lost approximately 5lbs in the last few months. She does take a daily aspirin, and for months has cramping legs at night and will take Nsaids overnight on an empty stomach for this pain. She has reflux occasionally, does not take medications for this. In the ED, vitals were notable for borderline tachycardia hr 95, blood pressure 160s/70s. Labs notable for WBC 7.5, hgb 8.5 (with no recent), BUN 26, creatinine 0.94, LFTS ok. Lipase ok. Chest xray with no acute process. CT abdomen showed mild wall thickening of the duodenum from probable duodenitis. Rectal showed guaiac positive stool. She was given IV fluids, IV protonix, and ordered for transfusion of PRBC. She was admitted for further treatment. Patient History Medical History (Updated 03/18/21 @ 20:03 by Diandra Zhu DO) Diabetes type 2, controlled Gastroesophageal reflux History of fracture of left ankle History of pelvic fracture Hyperlipidemia Hypertension Irritable bladder Surgical History History of bladder suspension procedure History of breast biopsy History of D&C History of hysterectomy History of pelvic surgery Family & Social History Family History (Updated 11/01/18 @ 23:08 by YG Luciano) Father Hypertension Mother Cancer Brother Stroke Brother Heart attack Brother Heart attack Sister Cancer Social History: household members spouse Prior Living Arrangements House Safety & Behavioral: Feels Safe in Current Yes Environment Been Physically Hurt or No Threatened By a Person Suicidal Ideation Description None Suicide Plan Description No Plan Tobacco & Substance use: Smoking Status Former smoker alcohol intake never Substance Use Type does not use Meds Home Medications and Allergies Home Medications Medication Instructions Recorded Confirmed Type aspirin 81 mg tablet 81 mg PO DAILY 03/18/21 03/18/21 History atorvastatin 80 mg tablet 80 mg PO DAILY 03/18/21 03/18/21 History metoprolol tartrate 25 mg tablet 12.5 mg PO BID 03/18/21 03/18/21 History nitroglycerin 0.4 mg sublingual 0.4 mg SUBLINGUAL Q5M PRN 03/18/21 03/18/21 History tablet Allergies Allergy/AdvReac Type Severity Reaction Status Date / Time Sulfa (Sulfonamide Allergy Mild RASH Verified 11/01/18 18:38 Antibiotics) Review of Systems Review of Systems Narrative: 14 systems reviewed and negative aside from what is noted in HPI Exam Vital Signs (past 8 hours): - 03/18/21 16:23 03/18/21 17:19 03/18/21 17:30 Temperature 97.2 F L Pulse Rate 95 H 74 89 Respiratory Rate 22 19 24 Blood Pressure 169/70 H Pulse Oximetry 100 100 03/18/21 17:31 03/18/21 18:00 03/18/21 18:30 Temperature Pulse Rate 86 72 88 Respiratory Rate 26 H 14 17 Blood Pressure 169/118 H 181/77 H Pulse Oximetry 100 100 91 03/18/21 18:31 03/18/21 19:00 03/18/21 19:01 Temperature Pulse Rate 86 80 82 Respiratory Rate 17 25 H 24 Blood Pressure 190/78 H 164/73 H Pulse Oximetry 96 100 100 03/18/21 19:30 03/18/21 20:00 03/18/21 20:30 Temperature Pulse Rate 79 74 77 Respiratory Rate 20 15 24 Blood Pressure 150/67 H 172/67 H Pulse Oximetry 99 100 99 03/18/21 20:31 03/18/21 21:07 03/18/21 21:39 Temperature 98.3 F Pulse Rate 83 92 H Respiratory Rate 27 H 18 Blood Pressure 193/96 H 169/65 H Pulse Oximetry 92 95 Oxygen Delivery Method Room Air Narrative Exam Narrative: GEN: no acute distress HEENT: moist mucous membranes, PERRL NECK: trachea midline, no JVD CV: regular rate and rhythm, no murmurs PULM: clear bilaterally, no wheezes, rhonchi, rales ABD: soft, nontender, nondistended, no organomegaly, normal bowel sounds EXT: warm and well perfused with no edema NEURO: awake, alert, oriented, moving all extremities with no focal deficit noted SKIN: no rashes noted PSYCH: pleasant, cooperative Objective Labs Result Diagrams: 03/18/21 16:58 03/18/21 16:58 Labs: Laboratory Results - last 24 hr 03/18/21 03/18/21 03/18/21 16:58 16:58 16:58 WBC 7.5 RBC 2.79 L Hgb 8.5 L Hct 25.2 L MCV 90.2 MCH 30.6 MCHC 33.9 RDW 13.7 Plt Count 321 Neut % (Auto) 60.3 Lymph % (Auto) 31.4 [place] % (Auto) 6.3 Eos % (Auto) 1.5 L Baso % (Auto) 0.5 Neut # (Auto) 4500 Lymph # (Auto) 2400 [place] # (Auto) 500 Eos # (Auto) 100 Baso # (Auto) 0 PT 11.1 INR 1.0 APTT 24 L D Sodium 137 Potassium 4.1 Chloride 104 Carbon Dioxide 26 BUN 26 H Creatinine 0.94 Estimated GFR 56.9 L BUN/Creatinine Ratio 27.7 H Glucose 144 H Calcium 9.6 Total Bilirubin 0.5 AST 29 ALT 23 Alkaline Phosphatase 94 Total Creatine Kinase 47 CK-MB (CK-2) TNP CK-MB (CK-2) Rel Index TNP Troponin I < 0.012 Total Protein 6.7 Albumin 4.1 Globulin 2.6 Albumin/Globulin Ratio 1.6 Lipase 171 SARS-CoV-2 (PCR) Blood Type Antibody Screen Crossmatch 03/18/21 03/18/21 16:58 17:35 WBC RBC Hgb Hct MCV MCH MCHC RDW Plt Count Neut % (Auto) Lymph % (Auto) [place] % (Auto) Eos % (Auto) Baso % (Auto) Neut # (Auto) Lymph # (Auto) [place] # (Auto) Eos # (Auto) Baso # (Auto) PT INR APTT Sodium Potassium Chloride Carbon Dioxide BUN Creatinine Estimated GFR BUN/Creatinine Ratio Glucose Calcium Total Bilirubin AST ALT Alkaline Phosphatase Total Creatine Kinase CK-MB (CK-2) CK-MB (CK-2) Rel Index Troponin I Total Protein Albumin Globulin Albumin/Globulin Ratio Lipase SARS-CoV-2 (PCR) Negative Blood Type A Positive Antibody Screen Negative Crossmatch See Detail Assessment & Plan Assessment & Plan narrative: Ms. Pak is an 81W with PMH CAD s/p CABG, DM, GERD who presents with symptomatic anemia from acute GI bleed. 1. Acute GI bleed causing anemia -elevated BUN, possible duodenitis on CT consistent with possible upper GI bleed -patient using aspirin, and also nsaids overnight on empty stomach for pain, this is likely etiology of bleed -NPO overnight -surgery consult for EGD, possible colonoscopy -hgb 8.5 on admission, no recent hgb in system, given symptoms will transfuse prbc -IV PPI BID -orthostatic vitals in am 2. CAD s/p CABG -hold asa for now -restart medications when bleeding stabilized 3. Type 2 DM -diet controlled per patient -low dose ISS while in hospital 4. HTN -hold anti-hypertensives given orthostatic symptoms 5. HL -continue statin when not NPO 6. GERD -probable dc with PPI, continue IV PPI for now CODE: DNR/DNI Proxy: Jossue Pak, spouse DVT ppx: scds, no chemical ppx due to gi bleed I have utilized all available immediate resources to obtain, update, or review the patient's current medications. Time Spent With Patient Critical Care time: I spent a total of [] minutes of critical care time on this patient's care today; this time is exclusive of procedural time. Quality VTE Deep Vein Thrombosis/Pulmonary Embolism Present on Admission: No
[2021-03-18 21:57] LABS: HEMOLYSIS < 15 (0-50); Iron 75 ug/dL (37-170)
[2021-03-18 22:08] LABS: Percent Iron Saturation 22 % (15-50); Total Iron Binding Capacity 340 ug/dL (265-497); Transferrin 271 mg/dL (206-381)
[2021-03-19] VITALS (13 sets, daily range): BP systolic 139–182; BP diastolic 60–81; PULSE 63–97; RESP 16–18; TEMP 36.4–36.9; O2SAT 98–100
--- NOTE | 2021-03-19 01:22 | PC.NURSE ---
1st unit of PRBC's transfused @ 0025 tolerated transfusion. 2nd unit of PRBC's initiated @ 0044, will monitor.
[2021-03-19] MEDS: SODIUM CHLORIDE 0.9% 1,000 ML 100 ML IV (03:27)
[2021-03-19 05:38] LABS: Add Manual Diff / Slide Review NO; Basophils Absolute Auto 0 /uL (0-100); Basophils Percent Auto 0.6 % (0-2); Eosinophils Absolute Auto 100 /uL (0-450); Eosinophils Percent Auto 2.3 % (2-4); Hemoglobin 10.3 g/dL (12.0-16.0); Lymphocytes Absolute Auto 2400 /uL (1100-4500); Lymphocytes Percent Auto 36.6 % (25-40); Mean Corpuscular HGB Conc 33.9 % (30-36); Mean Corpuscular Hemoglobin 30.3 PG (26-34); Mean Corpuscular Volume 89.4 fL (80-100); Monocytes Absolute Auto 500 /uL (0-900); Monocytes Percent Auto 7.9 % (3-14); Neutrophils Absolute Auto 3400 /uL (1500-7000); Neutrophils Percent Auto 52.6 % (50-75); Platelet Count 244 X10^3/uL (150-400); Red Cell Distribution Width 14.3 % (11.6-14.8); White Blood Cell Count 6.5 X10^3/uL (4.5-11.0)
[2021-03-19 05:46] LABS: BUN Creatinine Ratio 20.4 (6-22); Blood Urea Nitrogen 19 mg/dL (7-17); Calcium 8.9 mg/dL (8.4-10.2); Carbon Dioxide 26 mmol/L (22-32); Chloride 107 mmol/L (98-107); Estimated Glomerular Filt Rate 57.6 mL/min (>60); Glucose 124 mg/dL (80-110); HEMOLYSIS < 15 (0-50); Sodium 139 mmol/L (137-145)
[2021-03-19 05:52] LABS: Hematocrit 30.4 % (36-46)
[2021-03-19] MEDS: PANTOPRAZOLE 40 MG VIAL IV (09:32)
[2021-03-19] MEDS: METOPROLOL IR 25 MG TABLET 12.5 MG PO (10:51)
[2021-03-19 12:36] LABS: Hematocrit 32.1 % (36-46); Hemoglobin 10.9 g/dL (12.0-16.0)
--- NOTE | 2021-03-19 12:48 | P.DS_ITS ---
History of Present Illness History of Present Illness Date Patient Seen: 03/19/21 Time Patient Seen: 12:48 Chief complaint: FAINTED SUN- PAIN IN BOWEL,LOWER ABD Narrative: Per Dr. Castro, Ms. Pak is an 81W with PMH CAD s/p CABG, diet controlled DM, who presents to the hospital with black stools and presyncope. Her states she hasn't had her normal amount of energy for weeks. She states that she was showering on Tuesday when she began to feel lightheaded, she was able to get to her bed where she passed out. She felt better once getting up. She has continued to feel lightheaded and imbalanced. Tuesday she noted she had lower abdominal discomfort and dark colored stool. No significant diarrhea. No brbpr. No vomiting. No fevers/chills. She has decreased appetite. She notes her last colonoscopy was when she was 68 years old. She has lost approximately 5lbs in the last few months. She does take a daily aspirin, and for months has cramping legs at night and will take Nsaids overnight on an empty stomach for this pain. She has reflux occasionally, does not take medications for this. In the ED, vitals were notable for borderline tachycardia hr 95, blood pressure 160s/70s. Labs notable for WBC 7.5, hgb 8.5 (with no recent), BUN 26, creatinine 0.94, LFTS ok. Lipase ok. Chest xray with no acute process. CT abdomen showed mild wall thickening of the duodenum from probable duodenitis. Rectal showed guaiac positive stool. She was given IV fluids, IV protonix, and ordered for transfusion of PRBC. She was admitted for further treatment. Discharge Providers Provider Date of admission: 03/18/21 20:05 Discharge Date: 03/19/21 Primary care physician: Timbo Horowitz MD Consults: 03/18/21 20:02 Consult to General Surgery Stat Comment: Consulting Provider: Cristel Wong Reason for consultation: gi bleed Has provider been notified: Yes Discharge provider: Carlos Enrique Tavera DO Summary Hospital Course Discharge Diagnosis: 1. Acute GI bleed causing an acute blood loss and symptomatic anemia 2. CAD s/p CABG 3. Type 2 DM 4. HTN 5. HLD 6. GERD Hospital Course: Ms. Pak is an 81W with PMH CAD s/p CABG, DM, GERD who presents with symptomatic anemia from acute GI bleed. She had had an episode of syncope as well due to anemia and bleeding prior to her admission. Her CT scan showed likely duodenitis. This was reviewed with the surgeon who recommended empiric treatment with NSAID cessation and an oral PPI. Discussed this with the patient and she agreed that no endoscopy was necessary at this time. She agreed to follow-up with her primary care provider. After this she improved much more quickly than expected. Her diet was quickly advanced and she was tolerating a regular diet without issue. Her hemoglobin also continued to trend up. The patient did receive a transfusion of 1 unit for symptomatic anemia on admission. No other medication changes are recommended at the time of discharge. Time Spent with Patient Time spent: Greater than 30 minutes Exam Vital Signs (past 8 hours): - 03/19/21 06:19 03/19/21 09:00 03/19/21 09:30 Temperature 97.5 F L Pulse Rate 72 Pulse Rate [Orthostatic Lying] 75 Pulse Rate [Orthostatic Sitting] 80 Pulse Rate [Orthostatic Standing] 97 H Respiratory Rate 16 Blood Pressure 182/71 H Blood Pressure [Orthostatic Lying] 182/76 H Blood Pressure [Orthostatic Sitting] 158/78 H Blood Pressure [Orthostatic Standing] 175/81 H Pulse Oximetry 100 100 03/19/21 10:53 03/19/21 12:00 Temperature 97.8 F Pulse Rate 71 71 Pulse Rate [Orthostatic Lying] Pulse Rate [Orthostatic Sitting] Pulse Rate [Orthostatic Standing] Respiratory Rate 17 Blood Pressure 178/76 H 149/64 H Blood Pressure [Orthostatic Lying] Blood Pressure [Orthostatic Sitting] Blood Pressure [Orthostatic Standing] Pulse Oximetry 100 100 Oxygen Delivery Method Room Air Oxygen Flow Rate 0 Narrative Exam Narrative: GEN: no acute distress HEENT: moist mucous membranes, PERRL NECK: trachea midline, no JVD CV: regular rate and rhythm, no murmurs PULM: clear bilaterally, no wheezes, rhonchi, rales ABD: soft, nontender, nondistended, no organomegaly, normal bowel sounds EXT: warm and well perfused with no edema NEURO: awake, alert, oriented, moving all extremities with no focal deficit noted SKIN: no rashes noted PSYCH: pleasant, cooperative Objective Labs Result Diagrams: 03/19/21 12:27 03/19/21 05:00 Labs: Laboratory Results - last 24 hr 03/18/21 03/18/21 03/18/21 16:58 16:58 16:58 WBC 7.5 RBC 2.79 L Hgb 8.5 L Hct 25.2 L MCV 90.2 MCH 30.6 MCHC 33.9 RDW 13.7 Plt Count 321 Neut % (Auto) 60.3 Lymph % (Auto) 31.4 [place] % (Auto) 6.3 Eos % (Auto) 1.5 L Baso % (Auto) 0.5 Neut # (Auto) 4500 Lymph # (Auto) 2400 [place] # (Auto) 500 Eos # (Auto) 100 Baso # (Auto) 0 PT 11.1 INR 1.0 APTT 24 L D Sodium 137 Potassium 4.1 Chloride 104 Carbon Dioxide 26 BUN 26 H Creatinine 0.94 Estimated GFR 56.9 L BUN/Creatinine Ratio 27.7 H Glucose 144 H Calcium 9.6 Iron TIBC % Saturation Transferrin Total Bilirubin 0.5 AST 29 ALT 23 Alkaline Phosphatase 94 Total Creatine Kinase 47 CK-MB (CK-2) TNP CK-MB (CK-2) Rel Index TNP Troponin I < 0.012 Total Protein 6.7 Albumin 4.1 Globulin 2.6 Albumin/Globulin Ratio 1.6 Lipase 171 SARS-CoV-2 (PCR) Blood Type Antibody Screen Crossmatch 03/18/21 03/18/21 03/18/21 16:58 16:58 17:35 WBC RBC Hgb Hct MCV MCH MCHC RDW Plt Count Neut % (Auto) Lymph % (Auto) [place] % (Auto) Eos % (Auto) Baso % (Auto) Neut # (Auto) Lymph # (Auto) [facility] # (Auto) Eos # (Auto) Baso # (Auto) PT INR APTT Sodium Potassium Chloride Carbon Dioxide BUN Creatinine Estimated GFR BUN/Creatinine Ratio Glucose Calcium Iron 75 TIBC 340 % Saturation 22 Transferrin 271 Total Bilirubin AST ALT Alkaline Phosphatase Total Creatine Kinase CK-MB (CK-2) CK-MB (CK-2) Rel Index Troponin I Total Protein Albumin Globulin Albumin/Globulin Ratio Lipase SARS-CoV-2 (PCR) Negative Blood Type A Positive Antibody Screen Negative Crossmatch See Detail 03/19/21 03/19/21 03/19/21 05:00 05:00 12:27 WBC 6.5 RBC 3.40 L Hgb 10.3 L 10.9 L Hct 30.4 L 32.1 L MCV 89.4 MCH 30.3 MCHC 33.9 RDW 14.3 Plt Count 244 Neut % (Auto) 52.6 Lymph % (Auto) 36.6 [facility] % (Auto) 7.9 Eos % (Auto) 2.3 Baso % (Auto) 0.6 Neut # (Auto) 3400 Lymph # (Auto) 2400 [facility] # (Auto) 500 Eos # (Auto) 100 Baso # (Auto) 0 PT INR APTT Sodium 139 Potassium 4.0 Chloride 107 Carbon Dioxide 26 BUN 19 H Creatinine 0.93 Estimated GFR 57.6 L BUN/Creatinine Ratio 20.4 Glucose 124 H Calcium 8.9 Iron TIBC % Saturation Transferrin Total Bilirubin AST ALT Alkaline Phosphatase Total Creatine Kinase CK-MB (CK-2) CK-MB (CK-2) Rel Index Troponin I Total Protein Albumin Globulin Albumin/Globulin Ratio Lipase SARS-CoV-2 (PCR) Blood Type Antibody Screen Crossmatch [facility] Medical History (Updated 03/18/21 @ 20:03 by Diandra Zhu DO) Diabetes type 2, controlled Gastroesophageal reflux History of fracture of left ankle History of pelvic fracture Hyperlipidemia Hypertension Irritable bladder Surgical History History of bladder suspension procedure History of breast biopsy History of D&C History of hysterectomy History of pelvic surgery Family History (Updated 11/01/18 @ 23:08 by YG Luciano) Father Hypertension Mother Cancer Brother Stroke Brother Heart attack Brother Heart attack Sister Cancer Social History household members: spouse Smoking Status: Former smoker alcohol intake: never Discharge Plan Discharge Plan Patient Disposition: Home Provider Discharge Comment: You were admitted to the hospital with GI bleeding. CT scan showed duodenal inflammation. This is treated with a medication. Please take twice daily. Avoid NSAID medications in the future. Please take this medication twice a day for 14 days, then reduce to daily until you run out of pills. This may need to be continued for a longer period of time at the dis cretion of your PCP. Discharge orders & Medications Prescriptions: New pantoprazole 40 mg tablet,delayed release (DR/EC) 40 mg PO BID 45 Days Qty: 90 RF: 0 pantoprazole 40 mg tablet,delayed release (DR/EC) 40 mg PO BID 45 Days Qty: 90 RF: 0 Continued atorvastatin 80 mg Tablet 80 mg PO DAILY RF: 0 nitroglycerin 0.4 mg Tablet, Sublingual 0.4 mg SUBLINGUAL Q5M PRN (Reason: Chest Pain) RF: 0 aspirin 81 mg Tablet 81 mg PO DAILY RF: 0 metoprolol tartrate 25 mg Tablet 12.5 mg PO BID RF: 0 Medication counseling provided by Pharmacist: Yes Follow up/Referrals: Timbo Horowitz MD [Primary Care Provider] - Diet/Activity/Treatments Diet: Diet as Tolerated Activity: As tolerated Visit Report/Discharge Packet Instructions: DI for Duodenitis Discharge Data Primary Care Provider: Timbo Horowitz Quality VTE Deep Vein Thrombosis/Pulmonary Embolism Present on Admission: No
--- NOTE | 2021-03-19 13:51 | PC.NURSE ---
Pt is dressed and ready for discharge home with Spouse. IV and Tele have been removed. Pt denies pain, nausea, or shortness of breath. Ate approx. 30% of her lunch ( had just had yogurt and cheese at around 1100). Went over d/c instructions with Pt and Spouse-discussed d/c meds, time of last dose, reviewed stroke education, encouraged Pt to drink plenty of fluids to prevent constipation or dehydration and to get up slowly from bed or chair to prevent dizziness and to follow up as directed. Encouraged Pt to observe her stool in case bleeding and report that to her doctor. Pt denied further questions and will be taken out via w/c with Spouse and all belongings.
--- NOTE | 2021-03-19 14:42 | CM.IDA ---
Initial DCP Assessment Note Pt is an 81 yo female, resident of [place], arrives from home after syncopal episode, weakness w/black stools. Feeling better today after transfusion, consult to general surgery for suspected GI bleed, however, patient does not want to remain admitted, would like to DC home PCP: Timbo Horowitz Payer: JOSE/Andrey Reviewed chart, pt discussed in multidisciplinary rounds this morning. Patient from home w/spouse. Dr Tavera planning to DC patient home. No needs identified from this [employer] No needs expected from DC planning team although will remain available in case this changes today. PADMA Coleman Discharge Planning/Care Management CM Discharge Assessment Start: 03/19/21 14:40 Freq: Status: Active Protocol: Document 03/19/21 14:40 MELIDA (Rec: 03/19/21 14:42 MELIDA [id number]) Discharge Planning Assessment Assigned Kaiako Kura [place] PADMA Melendez DPOA/Assigned Designee Name Jossue Pak, spouse Contact Information [phone] (cell) Advance Directives? No History Provided By Patient,Medical Record Prior Living Arrangements House Household Members spouse Independent with ADL's Yes Is patient alert and oriented? Yes Barriers to Discharge No Comment Patient eager to return home Discharge Plan Home Transportation Arrangement Spouse Referrals Initiated None needed
== END 2021-03-19 15:00 | disposition home or self-care (01) | DRG 378 ==
LOC: ED 20:03 → AC 20:06
PROVIDERS: Emergency Medicine; Internal Medicine; Admitting Provider Internal Medicine; Emergency Provider Emergency Medicine; PCP Family Medicine; Referring Provider Emergency Medicine; Visit Provider Internal Medicine
DX: K29.81 Duodenitis with bleeding (principal); D62 Acute posthemorrhagic anemia; I25.10 Atherosclerotic heart disease of native coronary artery without angina pectoris; E11.9 Type 2 diabetes mellitus without complications; E78.5 Hyperlipidemia, unspecified; K21.9 Gastro-esophageal reflux disease without esophagitis; I10 Essential (primary) hypertension; Z20.822 Contact with and (suspected) exposure to COVID-19; Z87.891 Personal history of nicotine dependence; Z66 Do not resuscitate; Z95.1 Presence of aortocoronary bypass graft
CPT/HCPCS: 36415; 36430; 71045; 74174; 80048; 80053; 81003; 82550; 82962; 83540; 83550; 83690; 84484; 85014; 85018; 85025; 85610; 85730; 86850; 86900; 86901; 87635; 93005; 93010; 94760; 96361; 96374; 99284; 99285; C9803; P9016; C9113; J1815; Q9967

== ENCOUNTER 2022-01-16 07:10 | Emergency (ER) | payer MEDICARE, OTHER, SELFPAY ==
[2021-03-18 21:08] VITALS: BMI 33.0
[2022-01-16] VITALS (9 sets, daily range): BP systolic 170–205; BP diastolic 72–106; PULSE 66–85; RESP 17–20; TEMP 37.1; O2SAT 96–100; BMI 33.5
--- NOTE | 2022-01-16 07:24 | DI.US.S_ITS ---
PROCEDURE: US ABDOMEN LIMITED INDICATIONS: RUQ PAIN TECHNIQUE: Real-time focused scanning was performed of the abdomen, with image documentation. COMPARISON: [facility], CT, CT ANGIO ABDOMEN PELVIS, 03/18/2021, 18:05. [facility], CR, XR CHEST 1V, 01/16/2022, 7:23. [facility], US, US ABDOMEN COMPLETE, 02/17/2021, 12:18. FINDINGS: The liver is normal in size and demonstrates no focal lesions. Layering sludge is seen within the gallbladder. No shadowing stones are seen. The gallbladder wall is not thickened, measuring 3 mm or less. No specific pericholecystic fluid is seen. The sonographic Domingo sign is negative. There is no biliary dilatation, the common bile duct measures 7-8 mm, which is likely within normal for a age. The pancreas is not well seen, secondary to overlying bowel gas. IMPRESSION: Sludge is seen within the gallbladder, without additional signs cholecystitis. Dictated by: Placido Oliver M.D. on 01/16/2022 at 7:56 Approved by: Placdio Oliver M.D. on 01/16/2022 at 7:59
--- NOTE | 2022-01-16 07:24 | DI.RAD.S_ITS ---
PROCEDURE: XR CHEST 1V INDICATIONS: chest pain TECHNIQUE: One view of the chest was acquired. COMPARISON: [facility], , XR CHEST 2V, 07/18/2019, 11:21. [facility], , US ABDOMEN LIMITED, 01/16/2022, 7:58. [facility], , XR CHEST 1V, 03/18/2021, 16:29. FINDINGS: Surgical changes and devices: Sternotomy wires and mediastinal clips are again seen. The superior most sternotomy wire is again seen to be fractured. Lungs and pleura: Lungs are clear. No pleural effusions or pneumothorax. Mediastinum: Mediastinal contours appear normal. Heart size is normal. Bones and chest wall: No suspicious bony lesions. Age-appropriate bony degenerative changes are seen. Overlying soft tissues appear unremarkable. IMPRESSION: No acute cardiopulmonary process is seen. Sternotomy wires and mediastinal clips seen, with the superior sternotomy wire fractured, as before. Dictated by: Placido Oliver M.D. on 01/16/2022 at 7:59 Approved by: Placido Oliver M.D. on 01/16/2022 at 8:00
[2022-01-16 07:38] LABS: Add Manual Diff / Slide Review NO; Basophils Absolute Auto 100 /uL (0-100); Basophils Percent Auto 0.4 % (0-2); Eosinophils Absolute Auto 100 /uL (0-450); Eosinophils Percent Auto 0.4 % (2-4); Hematocrit 38.2 % (36-46); Hemoglobin 13.4 g/dL (12.0-16.0); Lymphocytes Absolute Auto 1500 /uL (1100-4500); Lymphocytes Percent Auto 11.8 % (25-40); Mean Corpuscular Hemoglobin 30.5 PG (26-34); Mean Corpuscular Volume 87.2 fL (80-100); Monocytes Absolute Auto 900 /uL (0-900); Monocytes Percent Auto 7.1 % (3-14); Neutrophils Absolute Auto 10400 /uL (1500-7000); Neutrophils Percent Auto 80.3 % (50-75); Platelet Count 272 X10^3/uL (150-400); Red Blood Cell Count 4.38 X10^6/uL (4.0-5.2); Red Cell Distribution Width 13.5 % (11.6-14.8)
[2022-01-16] MEDS: ONDANSETRON 4 MG/2 ML INJ IV (07:48)
[2022-01-16] MEDS: KETOROLAC 30 MG/ML VIAL 15 MG IV (07:48)
[2022-01-16] MEDS: SODIUM CHLORIDE 0.9% 1,000 ML 150 ML IV (07:48)
--- NOTE | 2022-01-16 07:48 | ED_ITS ---
HPI - Abdominal Pain General Chief Complaint: Abdominal Pain Stated Complaint: weak/abd. pain Time Seen by Provider: 01/16/22 07:24 Source: patient Mode of arrival: Wheelchair History of Present Illness HPI narrative: Patient is an 81-year-old female history of 5 vessel bypass in 2019, tension hyperlipidemia, TIA type 2 diabetes presenting today with right upper quadrant pain. She says last night she went to [facility] with her then proceeded to have pizza. She is now having increased abdominal pain. She is mildly nauseous no vomiting. She really denies any chest pain. No fever or chills. She states that she was recently I [facility] for low sodium. Records report she was evaluated for hypertension blood pressures on 12/24/2021 for in the 200s blood work was overall reassuring her sodium at that time was 132 in she was discharged home and started on lisinopril. Related Data Home Medications Medication Instructions Recorded Confirmed aspirin 81 mg tablet 81 mg PO DAILY 03/18/21 03/18/21 atorvastatin 80 mg tablet 80 mg PO DAILY 03/18/21 03/18/21 metoprolol tartrate 25 mg tablet 12.5 mg PO BID 03/18/21 03/18/21 nitroglycerin 0.4 mg sublingual 0.4 mg sublingual Q5M PRN Chest 03/18/21 03/18/21 tablet Pain Allergies Allergy/AdvReac Type Severity Reaction Status Date / Time Sulfa (Sulfonamide Allergy Mild RASH Verified 11/01/18 18:38 Antibiotics) Review of Systems Review of Systems Narrative: GENERAL: Denies chills, fatigue, malaise, fever, sweats, travel HEENT: Denies sinus pain, ear pain, sore throat, difficulty swallowing, neck pain RESPIRATORY: Denies dyspnea, cough, wheezing, hemoptysis, sputum. CARDIOVASCULAR: Denies chest pain, palpitations, orthopnea, edema GASTROINTESTINAL: See HPI : Denies dysuria, frequency, incontinence, hematuria, urinary retention, flank pain. MUSCULOSKELETAL: Denies weakness, joint pain, or bony pain SKIN: No rash, no erythema, no pruritus NEUROLOGIC: Denies weakness, dizziness, headache, numbness, change in speech, confusion PSYCHIATRIC: No concerning psychosocial issues. 12 point review of systems is negative except for those stated above and HPI Patient History Medical History (Updated 08/13/22 @ 09:20 by Stella Gomez DO) Diabetes type 2, controlled Gastroesophageal reflux History of fracture of left ankle History of pelvic fracture Hyperlipidemia Hypertension Irritable bladder Surgical History History of bladder suspension procedure History of breast biopsy History of D&C History of hysterectomy History of pelvic surgery Family History Father Hypertension Mother Cancer Brother Stroke Brother Heart attack Brother Heart attack Sister Cancer Social History household members: spouse Smoking Status: Former smoker alcohol intake: never Smoking Status: Former smoker Substance Use Type: does not use Exam Initial Vital Signs Initial Vital Signs: Vital Signs Temperature 98.7 F 01/16/22 07:22 Pulse Rate 85 01/16/22 07:22 Respiratory Rate 17 01/16/22 07:22 Blood Pressure 190/79 H 01/16/22 07:22 Pulse Oximetry 100 01/16/22 07:22 Oxygen Delivery Method 01/16/22 07:22 GENERAL: Alert pleasant 81-year-old female and in no acute distress. HEENT: Head atraumatic,EOMI, pupils reactive, face symmetric, moist mucous membranes CARDIOVASCULAR: Regular rate and rhythm without murmurs, rubs or gallops. RESPIRATORY: Breath sounds equal bilaterally, no wheezes rales or rhonchi. ABDOMEN: Soft, tender right upper quadrant minimal epigastric pain no guarding no rebound no lower abdominal pain : No CVA tenderness EXTREMITIES: Normal range of motion, no clubbing or edema. Neurovascularly intact NEUROLOGICAL: Alert and oriented x4.Normal gait and speech. SKIN: Warm, dry, no laceration, no petechiae, no rashes or lesions. Course Orders Ordered: ED Orders 01/16/22 07:24 US abdomen limited Stat XR chest 1V Stat EKG-12 Lead Stat 01/16/22 07:30 Complete Blood Count AUTO DIFF Stat Comprehensive Metabolic Panel Stat Lipase Stat Troponin & CK Cardiac Panel Stat Discontinued Medications Sodium Chloride (Normal Saline 0.9%) 1,000 mls @ 150 mls/hr IV CONT BREANNA Last Infusion: 01/16/22 09:27 Dose: 0 mls/hr Documented By: Admin: 01/16/22 07:48 Dose: 150 mls/hr Documented By: RUT Ketorolac Tromethamine (Ketorolac 30 Mg/Ml Vial) 15 mg IV NOW ONE Stop: 01/16/22 07:25 Last Admin: 01/16/22 07:48 Dose: 15 mg Documented By: RUT Ondansetron HCl (Ondansetron 4 Mg/2 Ml Inj) 4 mg IV NOW ONE Stop: 01/16/22 07:25 Last Admin: 01/16/22 07:48 Dose: 4 mg Documented By: RUT Vital Signs Vital signs: Vital Signs - 8 hr 01/16/22 07:22 01/16/22 07:23 01/16/22 07:30 Temperature 98.7 F Pulse Rate 85 77 77 Respiratory Rate 17 Blood Pressure 190/79 H Pulse Oximetry 100 98 99 Oxygen Delivery Method Room Air 01/16/22 07:52 01/16/22 07:52 01/16/22 08:00 Temperature Pulse Rate 73 Respiratory Rate 20 Blood Pressure 184/106 H 172/74 H Pulse Oximetry 99 Oxygen Delivery Method 01/16/22 08:00 01/16/22 08:30 01/16/22 08:30 Temperature Pulse Rate 67 67 Respiratory Rate Blood Pressure 205/78 H Pulse Oximetry 99 96 Oxygen Delivery Method 01/16/22 09:00 01/16/22 09:01 01/16/22 09:01 Temperature Pulse Rate 66 67 Respiratory Rate Blood Pressure 170/74 H Pulse Oximetry 96 96 Oxygen Delivery Method 01/16/22 09:30 01/16/22 09:30 Temperature Pulse Rate 68 Respiratory Rate Blood Pressure 173/72 H Pulse Oximetry 98 Oxygen Delivery Method MDM - Abdominal Pain Lab Data Result diagrams: 01/16/22 07:30 01/16/22 07:30 Labs: Lab Results 01/16/22 01/16/22 Range/Units 07:30 07:30 WBC 13.0 H (4.5-11.0) X10^3/uL RBC 4.38 (4.0-5.2) X10^6/uL Hgb 13.4 (12.0-16.0) g/dL Hct 38.2 (36-46) % MCV 87.2 (80-100) fL MCH 30.5 (26-34) PG MCHC 35.0 (30-36) % RDW 13.5 (11.6-14.8) % Plt Count 272 (150-400) X10^3/uL Neut % (Auto) 80.3 H (50-75) % Lymph % (Auto) 11.8 L (25-40) % [place] % (Auto) 7.1 (3-14) % Eos % (Auto) 0.4 L (2-4) % Baso % (Auto) 0.4 (0-2) % Neut # (Auto) 30562 H (3113-4727) /uL Lymph # (Auto) 1500 (6938-9757) /uL [place] # (Auto) 900 (0-900) /uL Eos # (Auto) 100 (0-450) /uL Baso # (Auto) 100 (0-100) /uL Sodium 132 L (137-145) mmol/L Potassium 3.9 (3.4-5.1) mmol/L Chloride 98 (98-107) mmol/L Carbon Dioxide 26 (22-32) mmol/L BUN 21 H (7-17) mg/dL Creatinine 0.85 (0.52-1.04) mg/dL Estimated GFR > 60 (>60) mL/min BUN/Creatinine Ratio 24.7 H (6-22) Glucose 215 H (80-110) mg/dL Calcium 9.4 (8.4-10.2) mg/dL Total Bilirubin 0.9 (0.2-1.3) mg/dL AST 22 (14-36) IU/L ALT 18 (<35) IU/L Alkaline Phosphatase 132 H (38-126) U/L Total Creatine Kinase 33 (30-135) U/L CK-MB (CK-2) TNP CK-MB (CK-2) Rel Index TNP Troponin I < 0.012 (0.01-0.034) ng/mL Total Protein 7.2 (6.3-8.2) g/dL Albumin 4.2 (3.5-5.0) g/dL Globulin 3.0 (1.7-4.1) g/dL Albumin/Globulin Ratio 1.4 (1.0-2.8) Lipase 518 H (23-300) U/L Imaging Data US - abdomen: Radiologist's Impression: Ultrasound Report Signed Patient: Gerda Pak MR#: [id number] : 1940 Acct:[id number] Age/Sex: 81 / F Date of Service: 01/16/22 Loc: ED Accession Number: [id number] ?? Procedure: US abdomen limited Ordering Provider: Stella Gomez D.O. PROCEDURE: US ABDOMEN LIMITED ? INDICATIONS:? RUQ PAIN ? TECHNIQUE:? Real-time focused scanning was performed of the abdomen, with image documentati on.? ? COMPARISON:? [facility], CT, CT ANGIO ABDOMEN PELVIS, 03/18/2021, 18:05.? [facility], CR, XR CHEST 1V, 01/16/2022, 7:23.? [facility], US, US ABDOMEN COMPLETE, 02/17/2021, 12:18. ? FINDINGS:? The liver is normal in size and demonstrates no focal lesions. ? Layering sludge is seen within the gallbladder.? No shadowing stones are seen.? The gallbladder wall is not thickened, measuring 3 mm or less.? No specific pericholecystic fluid is seen.? The sonographic Domingo sign is negative. ? There is no biliary dilatation, the common bile duct measures 7-8 mm, which is likely within normal for a age. ? The pancreas is not well seen, secondary to overlying bowel gas. ? ? IMPRESSION:? Sludge is seen within the gallbladder, without additional signs cholecystitis. ? ? Dictated by: Placido Oliver M.D. on 01/16/2022 at 7:56 ? ? Approved by: Placiod Oliver M.D. on 01/16/2022 at 7:59 ? Chest x-ray: Radiologist's Impression: Signed Patient: Gerda Pak MR#: [id number] : 1940 Acct:[id number] Age/Sex: 81 / F Date of Service: 01/16/22 Loc: ED Accession Number: [id number] ?? Procedure: XR chest 1V Ordering Provider: Stella Gomez D.O. PROCEDURE:? XR CHEST 1V ? INDICATIONS:? chest pain ? TECHNIQUE:? One view of the chest was acquired.? ? COMPARISON:? [facility], CR, XR CHEST 2V, 07/18/2019, 11:21.? [facility], US, US ABDOMEN LIMITED, 01/16/2022, 7:58.? [facility], CR, XR CHEST 1V, 03/18/2021, 16:29. ? FINDINGS:? ? Surgical changes and devices:? Sternotomy wires and mediastinal clips are again seen.? The superior most sternotomy wire is again seen to be fractured. ? Lungs and pleura:? Lungs are clear.? No pleural effusions or pneumothorax.? ? Mediastinum:? Mediastinal contours appear normal.? Heart size is normal.? ? Bones and chest wall:? No suspicious bony lesions.? Age-appropriate bony degenerative changes are seen.? Overlying soft tissues appear unremarkable.? ? ? IMPRESSION:? ? No acute cardiopulmonary process is seen.? ? Sternotomy wires and mediastinal clips seen, with the superior sternotomy wire fractured, as before. ? ? Dictated by: Placido Oliver M.D. on 01/16/2022 at 7:59 ? ? Approved by: Placido Oliver M.D. on 01/16/2022 at 8:00 ? ECG Data Interpretation: Normal sinus rhythm rate 74 p.r. interval 166 QRS [address] changes similar to prior MDM Narrative Medical decision making narrative: The patient presents with right upper quadrant pain. Ultrasound today does show gallbladder sludge with out thickening stones or pericholecystic fluid. She has mild leukocytosis without elevation of bilirubin or liver enzymes. No sign of cholecystitis at this time. Lipase is minimally elevated at 500. Overall feeling better after Toradol and fluids. At this time recommend avoiding pizza and ice cream in following up with PCP. Discharge Plan Departure Patient Disposition: Home Clinical Impression: Gallbladder sludge, Hypertension Instructions: DI for General Gallbladder Conditions Activity Restrictions/Additional Instructions: *You have been diagnosed with gallbladder attack and hypertension *What to do: At this time avoid fatty foods such as pizza and a screening. Please be sure to take her blood pressure medications and monitor your blood pressure at home *Continue to take medications as directed *Follow up with your primary care provider in 2-3 days or call [phone] *Return to ER if you should have increasing pain vomiting fever or any new, worsening or concerning symptoms Prescriptions: No Action atorvastatin 80 mg Tablet 80 mg PO DAILY nitroglycerin 0.4 mg Tablet, Sublingual 0.4 mg SUBLINGUAL Q5M PRN (Reason: Chest Pain) aspirin 81 mg Tablet 81 mg PO DAILY metoprolol tartrate 25 mg Tablet 12.5 mg PO BID Referrals: Timbo Horowitz MD [Primary Care Provider] - Visit Report Forms: Patient Portal/API
[2022-01-16 07:50] LABS: Alanine Aminotransferase 18 IU/L (<35); Albumin 4.2 g/dL (3.5-5.0); Albumin Globulin Ratio 1.4 (1.0-2.8); Alkaline Phosphatase 132 U/L (38-126); Aspartate Aminotransferase 22 IU/L (14-36); BUN Creatinine Ratio 24.7 (6-22); Bilirubin Total 0.9 mg/dL (0.2-1.3); Blood Urea Nitrogen 21 mg/dL (7-17); Calcium 9.4 mg/dL (8.4-10.2); Carbon Dioxide 26 mmol/L (22-32); Chloride 98 mmol/L (98-107); Creatine Kinase 33 U/L (30-135); Estimated Glomerular Filt Rate > 60 mL/min (>60); Glucose 215 mg/dL (80-110); HEMOLYSIS < 15 (0-50); Lipase 518 U/L (23-300); Potassium 3.9 mmol/L (3.4-5.1); Sodium 132 mmol/L (137-145); Total Protein 7.2 g/dL (6.3-8.2)
[2022-01-16 08:02] LABS: Troponin I < 0.012 ng/mL (0.01-0.034)
== END 2022-01-16 09:35 | disposition home or self-care (01) ==
PROVIDERS: Emergency Provider Emergency Medicine; PCP Family Medicine
DX: K82.8 Other specified diseases of gallbladder (principal); I10 Essential (primary) hypertension; R07.9 Chest pain, unspecified
CPT/HCPCS: 36415; 71045; 76705; 80053; 82550; 83690; 84484; 85025; 93005; 93010; 96361; 96374; 96375; 99284; J1885; J2405

== ENCOUNTER 2022-01-17 20:25 | Emergency (ER) | payer MEDICARE, OTHER, SELFPAY ==
[2021-03-18 21:08] VITALS: BMI 33.0
[2022-01-17] VITALS (7 sets, daily range): BP systolic 141–173; BP diastolic 63–75; PULSE 67–88; RESP 11–17; TEMP 36.8; O2SAT 97–99; BMI 33.5
[2022-01-17 20:54] LABS: Add Manual Diff / Slide Review NO; Basophils Absolute Auto 200 /uL (0-100); Basophils Percent Auto 1.5 % (0-2); Eosinophils Absolute Auto 300 /uL (0-450); Eosinophils Percent Auto 2.6 % (2-4); Hemoglobin 13.4 g/dL (12.0-16.0); Lymphocytes Absolute Auto 1200 /uL (1100-4500); Lymphocytes Percent Auto 10.7 % (25-40); Mean Corpuscular HGB Conc 35.3 % (30-36); Mean Corpuscular Hemoglobin 30.9 PG (26-34); Mean Corpuscular Volume 87.4 fL (80-100); Monocytes Absolute Auto 300 /uL (0-900); Monocytes Percent Auto 3.1 % (3-14); Neutrophils Absolute Auto 9400 /uL (1500-7000); Neutrophils Percent Auto 82.1 % (50-75); Platelet Count 300 X10^3/uL (150-400); Red Blood Cell Count 4.35 X10^6/uL (4.0-5.2); Red Cell Distribution Width 13.3 % (11.6-14.8); White Blood Cell Count 11.4 X10^3/uL (4.5-11.0)
[2022-01-17 21:07] LABS: Alanine Aminotransferase 18 IU/L (<35); Albumin Globulin Ratio 1.3 (1.0-2.8); Alkaline Phosphatase 128 U/L (38-126); Aspartate Aminotransferase 23 IU/L (14-36); BUN Creatinine Ratio 18.9 (6-22); Bilirubin Total 1.5 mg/dL (0.2-1.3); Blood Urea Nitrogen 17 mg/dL (7-17); Calcium 9.4 mg/dL (8.4-10.2); Carbon Dioxide 23 mmol/L (22-32); Chloride 95 mmol/L (98-107); Estimated Glomerular Filt Rate > 60 mL/min (>60); Globulin 3.2 g/dL (1.7-4.1); Glucose 184 mg/dL (80-110); HEMOLYSIS < 15 (0-50); Potassium 3.9 mmol/L (3.4-5.1); Sodium 129 mmol/L (137-145); Total Protein 7.2 g/dL (6.3-8.2)
--- NOTE | 2022-01-17 21:16 | ED_ITS ---
HPI - GI Bleed General Chief complaint: GI Bleed Stated complaint: Diarrhea, Bleeding from rectum Time Seen by Provider: 01/17/22 21:16 Source: patient Mode of arrival: Ambulatory History of Present Illness HPI Narrative: This is an 81-year-old female with history of CABG in 2019, hypertension, dyslipidemia, diet-controlled diabetes on aspirin 81 mg daily. Patient presents with diarrhea throughout the day which was preceded by nausea last night. Patient presented last night was found have right upper quadrant pain and found to have sludge in gallbladder. Patient states she was quite tender at that time. She has not had any pain through the day. No fevers. She denies syncope. She denies chest pain or shortness of breath. She denies any abdominal pain but states last night when they did ultrasound on her right upper quadrant was quite painful and she wanted to kill someone. She denies dysuria, urgency or frequency. She states she had diarrhea like stools throughout the day tonight she wiped and found blood on the toilet paper. She states she is not had recurrent episodes of bleeding since then. She is on aspirin no other thinners. Denies heart attack or strokes but has had CABG. No prior GI bleeds. She is had a hysterectomy which she states was complete 1984 in her tonsillectomy. She quit smoking in 1978, no alcohol, no illicit. Her PCP is Dr. Horowitz and she is accompanied by her . Related Data Home Medications Medication Instructions Recorded Confirmed aspirin 81 mg tablet 81 mg PO DAILY 03/18/21 03/18/21 atorvastatin 80 mg tablet 80 mg PO DAILY 03/18/21 03/18/21 metoprolol tartrate 25 mg tablet 12.5 mg PO BID 03/18/21 03/18/21 nitroglycerin 0.4 mg sublingual 0.4 mg sublingual Q5M PRN Chest 03/18/21 tablet Pain Previous Rx's Medication Instructions Recorded amoxicillin 875 mg-potassium 1 tab PO BID #20 tabs 01/17/22 clavulanate 125 mg tablet Allergies Allergy/AdvReac Type Severity Reaction Status Date / Time Sulfa (Sulfonamide Allergy Mild RASH Verified 11/01/18 18:38 Antibiotics) Review of Systems Review of Systems ROS Unobtainable: All systems reviewed & are unremarkable except as noted in HPI and below Patient History Medical History (Updated 01/17/22 @ 23:17 by Diandra Zhu DO) Diabetes type 2, controlled Gastroesophageal reflux History of fracture of left ankle History of pelvic fracture Hyperlipidemia Hypertension Irritable bladder Surgical History History of bladder suspension procedure History of breast biopsy History of D&C History of hysterectomy History of pelvic surgery Family History Father Hypertension Mother Cancer Brother Stroke Brother Heart attack Brother Heart attack Sister Cancer Social History household members: spouse Smoking Status: Former smoker alcohol intake: never Smoking Status: Former smoker Substance Use Type: does not use Exam Narrative Exam Narrative: GENERAL: Alert and oriented x three, well-nourished female in mild distress HEENT: Head normocephalic, atraumatic, EOMI, pupils reactive, face symmetric, moist mucous membranes NECK: Supple, full range of motion CARDIOVASCULAR: Regular rate and rhythm without murmurs, rubs or gallops. RESPIRATORY: Breath sounds equal bilaterally, no wheezes rales or rhonchi. ABDOMEN: Soft, nontender. Normoactive bowel sounds all 4 quadrants. No guarding or rebound, rigidity, no mass, : No CVA tenderness EXTREMITIES: Normal range of motion, no clubbing or edema. Neurovascularly intact NEUROLOGICAL: Cranial nerves II through XII grossly intact. Moving all extremities SKIN: Warm, dry, no petechiae, no rashes or lesions. Initial Vital Signs Initial Vital Signs: Vital Signs Temperature 98.3 F 01/17/22 20:34 Pulse Rate 86 01/17/22 20:34 Respiratory Rate 17 01/17/22 20:34 Blood Pressure 143/67 H 01/17/22 20:34 Pulse Oximetry 98 01/17/22 20:34 Oxygen Delivery Method 01/17/22 20:34 Course Orders Ordered: ED Orders 01/17/22 20:40 Complete Blood Count AUTO DIFF Stat Comprehensive Metabolic Panel Stat Lipase Stat Type and Screen Stat 01/17/22 20:44 EKG-12 Lead Stat 01/17/22 21:00 Urine Culture Stat Urine Microscopic Stat 01/17/22 21:39 CT abdomen pelvis w con Stat Discontinued Medications Amoxicillin/Clavulanate Potassium (Amoxicillin/Clav 875/125 Mg) 1 tab PO NOW ONE Stop: 01/17/22 23:21 Last Admin: 01/17/22 23:31 Dose: 1 tab Documented By: ANTONIO Vital Signs Vital signs: Vital Signs - 8 hr 01/17/22 20:34 01/17/22 21:32 01/17/22 22:00 Temperature 98.3 F Pulse Rate 86 70 67 Respiratory Rate 17 13 11 L Blood Pressure 143/67 H Pulse Oximetry 98 99 99 Oxygen Delivery Method Room Air 01/17/22 22:35 01/17/22 22:36 01/17/22 22:36 Temperature Pulse Rate 88 80 Respiratory Rate Blood Pressure 173/75 H Pulse Oximetry 99 97 Oxygen Delivery Method 01/17/22 23:00 01/17/22 23:01 01/17/22 23:01 Temperature Pulse Rate 69 68 Respiratory Rate Blood Pressure 141/63 H Pulse Oximetry 98 98 Oxygen Delivery Method MDM - GI Bleed Lab Data Result diagrams: 01/17/22 20:40 01/17/22 20:40 Labs: Lab Results 01/17/22 01/17/22 01/17/22 Range/Units 20:40 20:40 20:40 WBC 11.4 H (4.5-11.0) X10^3/uL RBC 4.35 (4.0-5.2) X10^6/uL Hgb 13.4 (12.0-16.0) g/dL Hct 38.0 (36-46) % MCV 87.4 (80-100) fL MCH 30.9 (26-34) PG MCHC 35.3 (30-36) % RDW 13.3 (11.6-14.8) % Plt Count 300 (150-400) X10^3/uL Neut % (Auto) 82.1 H (50-75) % Lymph % (Auto) 10.7 L (25-40) % [place] % (Auto) 3.1 (3-14) % Eos % (Auto) 2.6 (2-4) % Baso % (Auto) 1.5 (0-2) % Neut # (Auto) 9400 H (9980-7017) /uL Lymph # (Auto) 1200 (7562-4803) /uL [place] # (Auto) 300 (0-900) /uL Eos # (Auto) 300 (0-450) /uL Baso # (Auto) 200 H (0-100) /uL Sodium 129 L (137-145) mmol/L Potassium 3.9 (3.4-5.1) mmol/L Chloride 95 L (98-107) mmol/L Carbon Dioxide 23 (22-32) mmol/L BUN 17 (7-17) mg/dL Creatinine 0.90 (0.52-1.04) mg/dL Estimated GFR > 60 (>60) mL/min BUN/Creatinine Ratio 18.9 (6-22) Glucose 184 H (80-110) mg/dL Calcium 9.4 (8.4-10.2) mg/dL Total Bilirubin 1.5 H (0.2-1.3) mg/dL AST 23 (14-36) IU/L ALT 18 (<35) IU/L Alkaline Phosphatase 128 H (38-126) U/L Total Protein 7.2 (6.3-8.2) g/dL Albumin 4.0 (3.5-5.0) g/dL Globulin 3.2 (1.7-4.1) g/dL Albumin/Globulin Ratio 1.3 (1.0-2.8) Lipase (23-300) U/L Urine RBC (0-5/HPF) Urine WBC (0-5/HPF) Ur Squamous Epith Cells (0-5/HPF) Urine Bacteria (None) Ur Culture Indicated? Blood Type A Positive Antibody Screen Negative 01/17/22 01/17/22 Range/Units 20:40 21:00 WBC (4.5-11.0) X10^3/uL RBC (4.0-5.2) X10^6/uL Hgb (12.0-16.0) g/dL Hct (36-46) % MCV (80-100) fL MCH (26-34) PG MCHC (30-36) % RDW (11.6-14.8) % Plt Count (150-400) X10^3/uL Neut % (Auto) (50-75) % Lymph % (Auto) (25-40) % [place] % (Auto) (3-14) % Eos % (Auto) (2-4) % Baso % (Auto) (0-2) % Neut # (Auto) (7526-4255) /uL Lymph # (Auto) (7341-1867) /uL [place] # (Auto) (0-900) /uL Eos # (Auto) (0-450) /uL Baso # (Auto) (0-100) /uL Sodium (137-145) mmol/L Potassium (3.4-5.1) mmol/L Chloride (98-107) mmol/L Carbon Dioxide (22-32) mmol/L BUN (7-17) mg/dL Creatinine (0.52-1.04) mg/dL Estimated GFR (>60) mL/min BUN/Creatinine Ratio (6-22) Glucose (80-110) mg/dL Calcium (8.4-10.2) mg/dL Total Bilirubin (0.2-1.3) mg/dL AST (14-36) IU/L ALT (<35) IU/L Alkaline Phosphatase (38-126) U/L Total Protein (6.3-8.2) g/dL Albumin (3.5-5.0) g/dL Globulin (1.7-4.1) g/dL Albumin/Globulin Ratio (1.0-2.8) Lipase 73 D (23-300) U/L Urine RBC 0-1/hpf (0-5/HPF) Urine WBC 1-5/hpf (0-5/HPF) Ur Squamous Epith Cells 1-5 /hpf (0-5/HPF) Urine Bacteria Occasional (0-1) (None) Ur Culture Indicated? Specimen cultured Blood Type Antibody Screen Urine Dip Bedside Urine Glucose Negative Bedside Urine Bilirubin - Negative Bedside Urine Ketone +/- 5 Urine Specific [place] 1.015 Bedside Urine Occult Blood + Bedside Urine pH 6.0 Bedside Urine Protein - Negative Bedside Urine Urobilinogen - Negative Bedside Urine Nitrite - Negative Bedside Urine Leukocytes - Negative Esterase Imaging Data CT scan - abdomen/pelvis: Radiologist's Impression: Close Abdomen/Pelvis CT (Signed) Nahun Ernandez - 01/17/[address] [address] [address] Scan Report Signed Patient: Gerda Pak MR#: [id number] : 1940 Acct:[id number] Age/Sex: 81 / F Date of Service: 01/17/22 Loc: ED Accession Number: [id number] ?? Procedure: CT abdomen pelvis w con Ordering Provider: Diandra Zhu D.O. PROCEDURE:? CT ABDOMEN PELVIS W CON ? INDICATIONS:? right sided abd pain ? TECHNIQUE:? After the administration of IV contrast, axial sections were acquired from the lung bases to the pubic symphysis.? Coronal and sagittal reformats were performed.? For radiation dose reduction, the following was used:? automated exposure control, adjustment of mA and/or kV according to patient size. ? COMPARISON:? [facility], CT, CT ANGIO ABDOMEN PELVIS, 03/18/2021, 18:05. ? FINDINGS:? Image quality:? Excellent.? ? Lung bases:? Unremarkable.? ? Heart:? Heart is normal in size. ? ? ABDOMEN: Liver:? No mass lesion. Gallbladder:? The gallbladder is distended.? No calcified gallstones or definite wall thickening.? No pericholecystic fluid. Biliary ducts:? No biliary ductal dilatation.? ? Pancreas:? Unremarkable.? ? Spleen:? Normal in size.? ? Adrenal Glands:? No adrenal nodules.? ? Kidneys and Ureters:? No hydronephrosis.? ? ? Stomach and Bowel:? Stomach and small bowel loops are normal in caliber and wall thickness.? The appendix is normal in appearance.? There is colonic diverticulosis.? Associated diverticular and segmental colonic wall thickening is demonstrated wi thin the descending and sigmoid colon consistent with diverticulitis.? No associated diverticular abscess or macroscopic free air. Peritoneum:? There is minimal free fluid in the pelvis.? No free air.? ? Ventral Wall: ? No hernia.? Abdominal Nodes:? No retroperitoneal or mesenteric adenopathy by size criteria.? Vessels:? Aorta and inferior vena cava are normal in size.? ? PELVIS: Pelvic Organs:? The uterus is surgically absent..? ? Bladder:? Unremarkable.? ? Pelvic Nodes: No enlarged lymph nodes.? Miscellaneous: No inguinal hernias are seen. ? ? ? Bones:? There are bilateral pars defects at L5 with anterolisthesis of L5 on S1 measuring approximately 0.8 cm. Visualized osseous structures demonstrate no suspicious focal lesions. ? IMPRESSION:? ? 1. Segmental colitis in the descending and sigmoid colon likely secondary to acute diverticulitis.? No associated diverticular abscess or macroscopic free air.? Given the degree of colonic wall thickening, consider follow-up evaluation with colon oscopy to exclude an underlying mass. ? 2. Bilateral pars defects at L5 with anterolisthesis measuring approximately 0.8 cm. ? 3. No evidence of appendicitis.? ? ? Dictated by: Nahun Ernandez M.D. on 01/17/2022 at 22:47 ? ? Approved by: Nahun Ernandez M.D. on 01/17/2022 at 22:51?? ECG Data Attestation: I personally reviewed and interpreted this ECG as follows: Prior ECG tracings: available for review Interpretation: Sinus rhythm, left axis deviation, rate of 75 SD 174 QRS of [address]TC [address] No acute [address] changes appreciated patient has prior from 03/18/2021 which appears similar. MDM Narrative Medical decision making narrative: This is an 81-year-old female who comes to emergency department with complaint rectal bleeding, patient was seen the night before for nausea was under right upper quadrant ultrasound shows gallbladder sludge with otherwise reassuring labs. Patient is actually quite tender in right lower quadrant for me this evening so CT was obtained she had some rectal blood on toilet paper after having frequent diarrhea throughout the day. Patient was found to have diverticulitis. She is a mild hyponatremia. Patient does not septic, labs are otherwise reassuring with no major changes to renal or liver labs. Patient started on oral antibiotic, prescription with return precautions and patient aware she needs to follow up for colonoscopy for recheck in the future. Discharge Plan Departure Patient Disposition: Home Clinical Impression: Diverticulitis, Hyponatremia, Rectal bleed Instructions: DI for Diverticulitis Activity Restrictions/Additional Instructions: Please follow-up for recheck, your imaging today does show diverticulitis. You are recommended have follow-up colonoscopy in the next several months after your symptoms have resolved to further evaluate your colon. Please continue your medications as prescribed. Take antibiotics daily until gone. Prescription sent to [facility] pharmacy at [facility] Please return for fevers, rapidly worsening pain, persistent vomiting, black or bloody stools that are persistent or worsening with large clots, lightheadedness or passing out or other new or other concerning symptoms Prescriptions: New amoxicillin-pot clavulanate 875-125 mg tablet 1 tab PO BID Qty: 20 0RF No Action atorvastatin 80 mg Tablet 80 mg PO DAILY nitroglycerin 0.4 mg Tablet, Sublingual 0.4 mg SUBLINGUAL Q5M PRN (Reason: Chest Pain) aspirin 81 mg Tablet 81 mg PO DAILY metoprolol tartrate 25 mg Tablet 12.5 mg PO BID Referrals: Timbo Horowitz MD [Primary Care Provider] - Visit Report Forms: Patient Portal/API
[2022-01-17 21:31] LABS: Lipase 73 U/L (23-300)
--- NOTE | 2022-01-17 21:39 | DI.CT.S_ITS ---
PROCEDURE: CT ABDOMEN PELVIS W CON INDICATIONS: right sided abd pain TECHNIQUE: After the administration of IV contrast, axial sections were acquired from the lung bases to the pubic symphysis. Coronal and sagittal reformats were performed. For radiation dose reduction, the following was used: automated exposure control, adjustment of mA and/or kV according to patient size. COMPARISON: [facility], CT, CT ANGIO ABDOMEN PELVIS, 03/18/2021, 18:05. FINDINGS: Image quality: Excellent. Lung bases: Unremarkable. Heart: Heart is normal in size. ABDOMEN: Liver: No mass lesion. Gallbladder: The gallbladder is distended. No calcified gallstones or definite wall thickening. No pericholecystic fluid. Biliary ducts: No biliary ductal dilatation. Pancreas: Unremarkable. Spleen: Normal in size. Adrenal Glands: No adrenal nodules. Kidneys and Ureters: No hydronephrosis. Stomach and Bowel: Stomach and small bowel loops are normal in caliber and wall thickness. The appendix is normal in appearance. There is colonic diverticulosis. Associated diverticular and segmental colonic wall thickening is demonstrated within the descending and sigmoid colon consistent with diverticulitis. No associated diverticular abscess or macroscopic free air. Peritoneum: There is minimal free fluid in the pelvis. No free air. Ventral Wall: No hernia. Abdominal Nodes: No retroperitoneal or mesenteric adenopathy by size criteria. Vessels: Aorta and inferior vena cava are normal in size. PELVIS: Pelvic Organs: The uterus is surgically absent.. Bladder: Unremarkable. Pelvic Nodes: No enlarged lymph nodes. Miscellaneous: No inguinal hernias are seen. Bones: There are bilateral pars defects at L5 with anterolisthesis of L5 on S1 measuring approximately 0.8 cm. Visualized osseous structures demonstrate no suspicious focal lesions. IMPRESSION: 1. Segmental colitis in the descending and sigmoid colon likely secondary to acute diverticulitis. No associated diverticular abscess or macroscopic free air. Given the degree of colonic wall thickening, consider follow-up evaluation with colonoscopy to exclude an underlying mass. 2. Bilateral pars defects at L5 with anterolisthesis measuring approximately 0.8 cm. 3. No evidence of appendicitis. Dictated by: Nahun Ernandez M.D. on 01/17/2022 at 22:47 Approved by: Nahun Ernandez M.D. on 01/17/2022 at 22:51
[2022-01-17 22:09] LABS: Bacteria Urine Occasional (0-1); Culture Indicated Urine Specimen Cultured; RBC Urine 0-1/HPF (0-5/HPF); Squamous Epithelial Cell Urine 1-5 /HPF (0-5/HPF); WBC Urine 1-5/HPF (0-5/HPF)
[2022-01-17] MEDS: AMOXICILLIN/CLAV 875/125 MG 1 TAB PO (23:31)
== END 2022-01-17 23:42 | disposition home or self-care (01) ==
PROVIDERS: Emergency Provider Emergency Medicine; PCP Family Medicine
DX: K57.92 Diverticulitis of intestine, part unspecified, without perforation or abscess without bleeding (principal); E87.1 Hypo-osmolality and hyponatremia; K62.5 Hemorrhage of anus and rectum
CPT/HCPCS: 36415; 74177; 80053; 81003; 81015; 83690; 85025; 86850; 86900; 86901; 87086; 93005; 93010; 99284; Q9967

== ENCOUNTER → 2022-08-10 13:32 | Outpatient (CLI) | payer MEDICARE, OTHER, SELFPAY ==
[2021-03-18 21:08] VITALS: BMI 33.0
--- NOTE | 2022-08-10 | DI.RAD.S_ITS ---
PROCEDURE: XR CHEST 2V INDICATIONS: Essential (primary) hypertension TECHNIQUE: 2 views of the chest were acquired. COMPARISON: [facility], CR, XR CHEST 1V, 01/16/2022, 7:23. FINDINGS: Surgical changes and devices: Midline sternal wires, unchanged Lungs and pleura: Lungs are clear. No pleural effusions or pneumothorax. Mediastinum: Mediastinal contours are normal. Heart size is normal. Atherosclerotic vascular calcification noted in the aortic arch. Bones and chest wall: No suspicious bony abnormalities. Soft tissues appear unremarkable. IMPRESSION: No acute cardiopulmonary findings Approved by: Nate Thomas M.D. on 08/10/2022 at 17:56
== END ==
PROVIDERS: PCP Family Medicine; Referring Provider Family Medicine; Visit Provider Family Medicine
DX: I10 Essential (primary) hypertension (principal); I70.0 Atherosclerosis of aorta
CPT/HCPCS: 71046

== ENCOUNTER → 2023-07-27 13:29 | Outpatient (CLI) | payer MEDICARE, OTHER, SELFPAY ==
[2021-03-18 21:08] VITALS: BMI 33.0
--- NOTE | 2023-07-27 | DI.RAD.S_ITS ---
PROCEDURE: XR SHOULDER LT MIN 2V INDICATIONS: SHOULDER PAIN TECHNIQUE: 3 views of the shoulder were acquired. COMPARISON: [facility], CR, XR SHOULDER RT MIN 2V, 01/05/2019, 11:59. FINDINGS: Bones: No fractures or dislocations. Mild degenerative changes of the glenohumeral acromioclavicular joints. No suspicious bony lesions. Visualized ribs appear intact. Median sternotomy wires. Fracture of the superior most wire peer Soft tissues: No suspicious soft tissue calcifications. IMPRESSION: No acute osseous abnormalities. Mild degenerative changes of the glenohumeral acromioclavicular joints. Dictated by: Bruce Porter M.D. on 07/27/2023 at 15:42 Approved by: Bruce Porter M.D. on 07/27/2023 at 15:43
== END ==
PROVIDERS: PCP Family Medicine; Referring Provider Family Medicine; Visit Provider Family Medicine
DX: M75.32 Calcific tendinitis of left shoulder (principal); M25.512 Pain in left shoulder
CPT/HCPCS: 73030

== ENCOUNTER → 2024-07-23 09:49 | Outpatient (CLI) | payer MEDICARE, OTHER, SELFPAY ==
[2021-03-18 21:08] VITALS: BMI 33.0
--- NOTE | 2024-07-23 09:53 | DI.NM.S_ITS ---
PROCEDURE: NM URSULA PERF SPECT R&S PHARM Rest and pharmacological stress myocardial perfusion SPECT with gated imaging and ejection fraction RADIOPHARMACEUTICAL: 24.7 mCi Tc-99m tetrafosmin IV at rest and 24.9 mCi Tc-99m tetrafosmin IV at peak effect of pharmacological stress. [id number] was performed. INDICATIONS: HX OF CARIDIOMAPHY TECHNIQUE: Radiopharmaceutical was injected at peak stress test, and also at rest. SPECT images were obtained. SPECT myocardial perfusion images were displayed in short axis, horizontal long axis, and vertical long axis views. Gated images were reviewed using [employer] software. COMPARISON: None. CARDIAC STRESS: A pharmacologic stress test was performed under the supervision of an attending staff, using an infusion of regadenoson 0.4 mg IV. Hemodynamic data: There is normal blood pressure and heart rate response to pharmacologic stress. Symptoms: The patient denied anginal chest pain. EKG: No diagnostic changes of ischemia; no ectopy. FINDINGS: Raw data: There is good myocardial uptake of radiotracer. No significant motion artifacts. Buvk-ls-tujkl ratio is 0.23 (normal is less than 0.38 for tetrafosmin tracer). Left ventricle function: Gated images demonstrate normal left ventricular wall thickening. No segmental wall motion abnormalities. No transient ischemic dilation; TID is 0.84 (normal less than 1.3). Left ventricle resting end diastolic volume is 65 mL. Left ventricle stress ejection fraction is 73%; normal range is above 45%. Myocardial perfusion: There is normal distribution of activity in the right and left ventricular myocardium. No fixed or reversible perfusion defects. IMPRESSION: Low risk study. No evidence of pharmacologic induced ischemia or scar. Normal LV size and function. Dictated by: Mary Mcdonnell D.O. on 07/27/2024 at 17:07 Approved by: Mary Mcdonnell D.O. on 07/27/2024 at 17:08
== END ==
PROVIDERS: PCP Family Medicine; Referring Provider Internal Medicine Cardiovascular Disease; Visit Provider Internal Medicine Cardiovascular Disease
DX: I25.10 Atherosclerotic heart disease of native coronary artery without angina pectoris (principal)
CPT/HCPCS: 78452; 93017; A9502; J2785

== ENCOUNTER → 2024-12-06 12:54 | Outpatient (CLI) | payer MEDICARE, OTHER, SELFPAY ==
[2021-03-18 21:08] VITALS: BMI 33.0
--- NOTE | 2024-12-06 12:58 | DI.CT.S_ITS ---
PROCEDURE: CT HEAD/BRAIN WO CON INDICATIONS: Head injury TECHNIQUE: Noncontrast 4.5 mm thick angled axial sections acquired from the foramen magnum to the vertex, with coronal and sagittal reformats. For radiation dose reduction, the following was used: automated exposure control, adjustment of mA and/or kV according to patient size. COMPARISON: [facility], CT, CT HEAD/BRAIN WO CON, 11/01/2018, 18:09. FINDINGS: Image quality: Diagnostic. CSF spaces: Basal cisterns are patent. No extra-axial fluid collections. Ventricles are normal in size and shape. Brain: No midline shift. No intracranial mass effect or hemorrhage. [place]- white matter interface is normal. Moderate cerebral and cerebellar volume loss with multifocal white matter chronic ischemic change noted. Atherosclerotic calcification noted associated with cavernous segments of both internal carotid arteries. Skull and face: Calvarium and visualized facial bones are intact, without suspicious lesions. Sinuses: Visualized sinuses and mastoids are clear. IMPRESSION: Atrophy and chronic ischemic change without acute hemorrhage or mass effect Approved by: Nate Thomas M.D. on 12/06/2024 at 13:48
== END ==
PROVIDERS: PCP Family Medicine; Referring Provider Family Medicine; Visit Provider Family Medicine
DX: S09.90XA Unspecified injury of head, initial encounter (principal); I65.23 Occlusion and stenosis of bilateral carotid arteries; X58.XXXA Exposure to other specified factors, initial encounter
CPT/HCPCS: 70450

== ENCOUNTER → 2024-12-11 12:24 | Outpatient (CLI) | payer MEDICARE, OTHER, SELFPAY ==
[2021-03-18 21:08] VITALS: BMI 33.0
[2024-12-11 13:04] LABS: Add Manual Diff / Slide Review NO; Hematocrit 41.2 % (36-46); Hemoglobin 14.3 g/dL (12.0-16.0); Lymphocytes Absolute Auto 1900 /uL (1100-4500); Mean Corpuscular HGB Conc 34.6 % (30-36); Mean Corpuscular Hemoglobin 30.5 PG (26-34); Mean Corpuscular Volume 88.0 fL (80-100); Platelet Count 338 X10^3/uL (150-400)
[2024-12-11 13:37] LABS: Alanine Aminotransferase 17 IU/L (<35); Albumin 4.1 g/dL (3.5-5.0); Albumin Globulin Ratio 1.6 (1.0-2.8); Alkaline Phosphatase 132 U/L (38-126); Blood Urea Nitrogen 24 mg/dL (7-17); Calcium 9.6 mg/dL (8.4-10.2); Carbon Dioxide 25 mmol/L (22-32); Chloride 103 mmol/L (98-107); Estimated Glomerular Filt Rate 47 mL/min (>60); Globulin 2.6 g/dL (1.7-4.1); Glucose 195 mg/dL (70-99); HEMOLYSIS < 15 (0-50); Potassium 4.3 mmol/L (3.4-5.1); Sodium 136 mmol/L (137-145); Total Protein 6.7 g/dL (6.3-8.2)
[2024-12-11 14:08] LABS: Thyroid Stimulating Hormone 1.95 uIU/mL (0.47-4.68)
[2024-12-11 14:28] LABS: Vitamin B12 318 pg/mL (239-931)
[2024-12-11 14:51] LABS: Vitamin D 25 Hydroxy (D3) 39.5 ng/mL (30.0-100.0)
[2024-12-11 15:55] LABS: T4 Total Thyroxine 7.44 ug/dL (5.5-11.0); T7 (Free Thyroxine Index) 2.62 (1.65-3.89); Triiodothryronine T3 Uptake 35.2 % (23.5-40.5)
== END ==
PROVIDERS: PCP Family Medicine; Referring Provider Family Medicine; Visit Provider Family Medicine
DX: D51.9 Vitamin B12 deficiency anemia, unspecified (principal); E11.65 Type 2 diabetes mellitus with hyperglycemia; E55.9 Vitamin D deficiency, unspecified; Z13.0 Encounter for screening for diseases of the blood and blood-forming organs and certain disorders involving the immune mechanism; Z13.228 Encounter for screening for other metabolic disorders; Z13.29 Encounter for screening for other suspected endocrine disorder
CPT/HCPCS: 36415; 80053; 82306; 82607; 84436; 84443; 84479; 85025